=== PATIENT | female | born 1960 | race Caucasian/White ===

== ENCOUNTER → 2023-11-09 | Outpatient (CLI) | payer MEDICAID, SELFPAY ==
[2023-11-09 15:25] LABS: Amphetamine Urine VISTA NEGATIVE (<1000 ng/mL); Barbiturate Urine VISTA NEGATIVE (< 200 ng/mL); Benzodiazepine Urine VISTA POSITIVE (< 200 ng/mL); Cocaine Urine VISTA NEGATIVE (< 300 ng/mL); Ecstacy Urine VISTA NEGATIVE (< 500 ng/mL); Methadone Urine VISTA NEGATIVE (< 300 ng/mL); PCP Urine VISTA NEGATIVE (< 25 ng/mL); THC Urine VISTA NEGATIVE (< 50 ng/mL); Vista UDS pH Range 5
== END | disposition home or self-care (01) ==
LOC: LAB 14:35
PROVIDERS: PCP Nurse Practitioner Family; Referring Provider Anesthesiology Pain Medicine; Visit Provider Anesthesiology Pain Medicine
DX: F11.20 Opioid dependence, uncomplicated (principal)
CPT/HCPCS: 80307

== ENCOUNTER → 2023-11-16 | Outpatient (CLI) | payer MEDICAID, SELFPAY ==
[2023-11-16 13:39] LABS: Amphetamine Urine VISTA NEGATIVE (<1000 ng/mL); Barbiturate Urine VISTA NEGATIVE (< 200 ng/mL); Benzodiazepine Urine VISTA POSITIVE (< 200 ng/mL); Cocaine Urine VISTA NEGATIVE (< 300 ng/mL); Ecstacy Urine VISTA NEGATIVE (< 500 ng/mL); Methadone Urine VISTA NEGATIVE (< 300 ng/mL); PCP Urine VISTA NEGATIVE (< 25 ng/mL); THC Urine VISTA NEGATIVE (< 50 ng/mL); Vista UDS pH Range 6
== END | disposition home or self-care (01) ==
LOC: LAB 12:11
PROVIDERS: PCP Nurse Practitioner Family; Referring Provider Anesthesiology Pain Medicine; Visit Provider Anesthesiology Pain Medicine
DX: F11.20 Opioid dependence, uncomplicated (principal)
CPT/HCPCS: 80307

== ENCOUNTER 2023-12-09 10:25 | Inpatient (IN) | payer MEDICAID, SELFPAY ==
[2023-12-09 10:26] VITALS: BP 119/63; PULSE 95; RESP 18; TEMP 36.1; O2SAT 100; O2SAT 97; BMI 20.8
[2023-12-09 10:31] VITALS: BP 119/63; PULSE 95; RESP 16; TEMP 36.1; O2SAT 99
--- NOTE | 2023-12-09 10:42 | EX.ED.DYSGE1 ---
HPI History of Present Illness Chief Complaint: General Illness Informant: patient Narrative Narrative: Chief complaint, I cannot do nuthin. It takes a lot of questioning to get details out of the patient. She is very nonspecific. But it sounds like for 3 weeks she has not felt well. She has not had an appetite. But she is able to eat and drink. She states she is drinking fluids but then states she is very thirsty and wants to drink now. She has been coughing and brings up spit. She is short of breath on exertion but it sounds like that is not new if she has significant COPD. She is not on oxygen. She is still smoking. She states she just feels overall weak. She has not seen anyone about this. No change in medications. She also complains of her mouth being really sore and dry. Last steroids were months ago. No recent antibiotics. She denies any change in urine. No abdominal pain. No diarrhea. No known fever. She states she has COPD, chronic pain from several back surgeries. She has never had problems with her heart. She has had multiple breast surgeries for cysts but they have been benign. No abdominal surgeries. But then she states she had surgeries for scarring or something in her abdomen but she does not know what it was. PFSH PFSH Medical History Anxiety and depression Chronic back pain COPD (chronic obstructive pulmonary disease) GERD (gastroesophageal reflux disease) HLD (hyperlipidemia) RLS (restless legs syndrome) Tobacco use Home Medications acetaminophen 500 mg tablet 500 mg PO Q8H PRN pain 12/09/23 [History Last Taken 12/07/23] albuterol sulfate 90 mcg/actuation aerosol inhaler 2 puff inhalation Q6H PRN shortness of breath or wheezing 12/09/23 [History Last Taken 12/08/23] alprazolam 0.5 mg tablet 0.5 mg PO BID 12/09/23 [History Last Taken 12/09/23] cholecalciferol (vitamin D3) 1 cap PO DAILY 12/09/23 [History Last Taken 12/09/23] colestipol 1 gram tablet (Colestid) 1 g PO BID 12/09/23 [History Last Taken 12/09/23] escitalopram oxalate 20 mg tablet 20 mg PO DAILY 12/09/23 [History Last Taken 12/08/23] famotidine 40 mg tablet (Pepcid) 40 mg PO BID 12/09/23 [History Last Taken 12/08/23] gabapentin 600 mg tablet 600 mg PO TID 12/09/23 [History Last Taken 12/09/23] methocarbamol 750 mg tablet 750 mg PO TID 12/09/23 [History Last Taken 12/08/23] mirtazapine 15 mg tablet 15 mg PO QHS 12/09/23 [History Last Taken 12/08/23] ondansetron HCl 4 mg tablet 4 mg PO Q8H PRN nausea and vomiting 12/09/23 [History Last Taken Unknown] pantoprazole 40 mg tablet,delayed release (Protonix) 40 mg PO BID 12/09/23 [History Last Taken 12/09/23] ropinirole 1 mg tablet 1 mg PO QHS 12/09/23 [History Last Taken 12/08/23] rosuvastatin 5 mg tablet (Crestor) 5 mg PO DAILY 12/09/23 [History Last Taken 12/08/23] zaleplon 5 mg capsule 5 mg PO QHS PRN sleep 12/09/23 [History Last Taken 12/08/23] Allergy/AdvReac Type Severity Reaction Status Date / Time amoxicillin Allergy Mild Diarrhea Verified 12/09/23 10:37 dexlansoprazole Allergy Mild Diarrhea Verified 12/09/23 10:37 Influenza Virus Vaccines Allergy Mild Vomiting Verified 12/09/23 10:37 morphine Allergy Mild Vomiting Verified 12/09/23 10:38 sulfamethoxazole Allergy Mild Rash Verified 12/09/23 10:38 [From Bactrim] trimethoprim [From Bactrim] Allergy Mild Rash Verified 12/09/23 10:38 hydroxychloroquine Allergy Unknown NEEDS Verified 12/09/23 10:37 FOLLOW-UP metronidazole AdvReac Mild BLOATING Verified 12/09/23 10:37 Family History (Updated 12/09/23 @ 13:[address] Manjula Hopkins MD) Mother Diabetes Father Heart disease Hypertension CAD (coronary artery disease) Myocardial infarction Surgical History (Updated 12/09/23 @ 13:[address] Manjula Hopkins MD) H/O removal of cyst History of arthroscopy of right shoulder History of back surgery Hx of cholecystectomy S/P total abdominal hysterectomy Social History (Updated 12/09/23 @ 13:[address] Manjula Hopkins MD) household members: none Smoking Status: Current every day smoker tobacco type: cigarettes Smoking packs per day: 1 Smoking cigarettes per day: 20.0 alcohol intake: never substance use type: does not use ROS ROS ED Constitutional Constitutional ED: Denies chills, fever(s), sweats or weight loss Eyes Eyes: Denies change in vision ENT ENT ED: Reports sore throat; Denies ear pain or rhinorrhea Cardiovascular Cardiovascular: Denies chest pain or palpitations Respiratory/Chest Respiratory/Chest: Reports cough, dyspnea on exertion and sputum Gastrointestinal Gastrointestinal: Denies abdominal pain, diarrhea, nausea or vomiting Genitourinary Genitourinary ED: Denies dysuria or hematuria Musculoskeletal Musculoskeletal: Denies myalgias Integumentary Denies rash Neurologic Neurologic: Denies headache(s) Psychiatric Psychiatric: Reports anxiety Endocrine Endocrinology: Denies polydipsia or polyuria Hematologic/Lymphatic Hematologic/Lymphatic: Denies easy bleeding, easy bruising or lymphadenopathy Allergic/Immunologic Allergic/Immunologic ED: Denies urticaria EXAM Physical Exam Narrative Exam Narrative: CONSTITUTIONAL: Patient is nontoxic in appearance. The patient looks comfortable. Work of breathing looks normal. But she does look quite dry. HEENT: No notable trauma. Mucous membranes are quite dry. The back of her throat is a little bit irritated. I do not see defined ulcers. I do not see definitive thrush either. No sinus tenderness. No indication of pain with swallowing. EYES: No conjunctival injection. No proptosis. No pallor. NECK:No JVD. No stridor. CARDIOVASCULAR: Regular rate. Regular rhythm. No notable murmur. No JVD. RESPIRATORY: No respiratory distress. Breathing is unlabored. No wheezes. Her saturations are normal at 99% on room air. No pain with a deep breath. No tenderness. GASTROINTESTINAL: Not distended. Bowel sounds are normal. No tenderness. No guarding. No rebound. No palpable mass. No bruit is heard. She does appear to have signs of prior surgery. GENITOURINARY: No tenderness over the bladder. No CVA tenderness. MUSCULOSKELETAL: Atraumatic. No peripheral edema. No cord. No tenderness along the deep venous system. No asymmetry. NEUROLOGICAL: Patient is alert and appropriate. No focal deficit noted. SKIN: No noted rashes. No diaphoresis. PSYCHIATRIC: Patient is calm. Mood is appropriate. Const Vital Signs: 12/09/23 10:26 12/09/23 10:31 12/09/23 10:33 Temperature 97 F L 97 F L Temperature Source Temporal Temporal Pulse Rate 95 95 Respiratory Rate 18 16 Respiratory Effort Normal Non-Labored Respiratory Pattern Normal Blood Pressure 119/63 119/63 Blood Pressure Mean 81 81 Pulse Ox 97 99 Oxygen Delivery Method Room Air MDM MDM MDM Narrative Medical decision making narrative: My independent interpretation of her single view chest x-ray shows no acute process. I see no infiltrate. Final reading is pending. CBC shows significantly elevated white count at 23.6. She also has anemia at 9.3. She denies black or bloody stools. Platelets are also high at 670. I have no old labs for comparison. She does report getting treatments several times a week years ago to bring up my counts. She does not recognize CML AML or leukemia as a diagnosis. Patient's electrolytes show elevated BUN/creatinine. She also has very low potassium at 2.7 that was replaced. Sodium is a bit low. She is getting IV fluids. Although this creatinine is not markedly high, this patient has no history of kidney disease looks dry and is only 55 kg. My suspicion is her creatinine is normally less than half of that value so I do believe this represents an acute kidney injury in this patient. Liver function test show no marked abnormalities. Lactate is normal. Urinalysis did come back and even though she has no symptoms she does have findings consistent with a UTI and this is cultured. She is already treated with antibiotics. Lab Data Attestation: I reviewed the patient's lab results. Labs: Laboratory Results - last 24 hr 12/09/23 12/09/23 12/09/23 10:45 11:15 11:48 WBC 23.6 H RBC 2.79 L Hgb 9.3 L Hct 27.6 L MCV 98.9 MCH 33.3 H MCHC 33.7 RDW Std Deviation 53.2 H RDW Coeff of Francis 14.6 Plt Count 670 H MPV 9.4 Immature Gran % (Auto) 2.600 H Neut % (Auto) 86.9 H Lymph % (Auto) 4.7 L [place] % (Auto) 5.3 Eos % (Auto) 0.0 Baso % (Auto) 0.5 Absolute Neuts (auto) 20.5 H Absolute Lymphs (auto) 1.11 Nucleated RBC % 0 Sodium 129 L Potassium 2.7 L* Chloride 108 H Carbon Dioxide 11.0 L Anion Gap 10 BUN 34 H Creatinine 1.39 H Estim Creat Clear Calc 35.77 Est GFR (MDRD) Af Amer 49 L Est GFR (MDRD) Non-Af 41 L BUN/Creatinine Ratio 24.5 H Glucose 101 Lactic Acid 1.0 Calcium 9.1 Phosphorus 2.5 Magnesium 2.2 Total Bilirubin 0.30 AST 62 H ALT 29 Alkaline Phosphatase 117 Troponin I High Sens 8 Total Protein 6.9 Albumin 2.1 L Globulin 4.8 H Albumin/Globulin Ratio 0.4 L Urine Color Yellow Urine Clarity Clear Urine pH 5.0 Ur Specific [place] 1.015 Urine Protein 100 H Urine Glucose (UA) Normal Urine Ketones 15 H Urine Occult Blood 25 H Urine Nitrite Negative Urine Bilirubin Negative Urine Urobilinogen Normal Ur Leukocyte Esterase 500 H Urine RBC 0 SEEN Urine WBC >100 SEEN Ur Squamous Epith Cells 0 SEEN Urine Bacteria 1+ Urine Mucus 0 SEEN Radiography Diagnostic Testing: Clinical Impression(s) from Imaging Studies Chest X-Ray 12/09/23 11:00 IMPRESSION: Partial mild early infiltrate in the right upper and right middle lobes. Electronically Signed: Norbert Keys MD at 11:10 EST , EKG Initial EKG: Comments: My independent interpretation of the patient's EKG is a normal sinus rhythm with overall rate of 91. Mild baseline variation but no acute ST elevation or depression. No ectopy. NC interval, QRS duration and QTc are normal. Discharge Plan Triage Chief Complaint: General Illness ED Provider: Wilmar Diallo Dx/Rx/DC Orders Clinical Impression: TYRA (acute kidney injury), UTI (urinary tract infection), Pneumonia, Dehydration, Acute hypokalemia Primary Care Provider: Lydia Flores NP Disposition Disposition: [facility]
[2023-12-09] MEDS: 0.9% Normal Saline (1000mL) 1,000 ML 1000 ML IV (10:45)
--- NOTE | 2023-12-09 10:45 | ED.RN ---
NO OLD EKG
[2023-12-09 10:56] LABS: Absolute Lymphocyte Count 1.11 X10^3/uL (0.83-4.51); Absolute Neutrophil Count 20.5 X10^3/uL (2.0-7.7); Basophil# 0.11 X10^3/uL; Basophil% 0.5 % (0-1); Eosinophil# 0.01 X10^3/uL; Hematocrit 27.6 % (37-47); Hemoglobin 9.3 g/dL (12.0-15.0); Lymphocyte # 1.11 X10^3/ul (0.83-4.51); Lymphocyte % 4.7 % (19-41); Mean Corp Hgb Conc 33.7 g/dL (32-36); Mean Corpuscular Hgb 33.3 pg (27.0-32.0); Mean Corpuscular Volume 98.9 fL (81-99); Mean Platelet Vol. 9.4 fl (6.2-12.0); Monocyte# 1.26 X10^3/uL; Monocyte% 5.3 % (0-10); NRBC Flagged by Analyzer 0 % (0-5); Neutrophil # 20.54 X10^3/uL (2.7-7.7); Neutrophil % 86.9 % (47-70); POSITIVE DIFFERENTIAL YES; Platelet Count 670 K/mm3 (150-450); RBC Distribution Width CV 14.6 % (11.6-14.6); RBC Distribution Width SD 53.2 fl (35.1-43.9); Red Blood Count 2.79 M/mm3 (4.2-5.4); White Blood Count 23.6 K/mm3 (4.4-11.0)
[2023-12-09 10:58] LABS: Differential Indicated SCAN CRITERIA MET
--- NOTE | 2023-12-09 11:00 | RAD_ITS ---
STUDY: X-RAY CHEST REASON FOR EXAM: Female, 63 years old. Cough TECHNIQUE: Single AP portable view of the chest. COMPARISON: None. FINDINGS: EKG electrodes are seen. Findings suggestive of mild increased markings in the right middle lobe as well as in the right upper lobe adjacent to the fissure. There is no demonstrated pleural abnormality. Normal size heart. Normal mediastinum and claude. Normal visualized pulmonary arteries. Normal visualized aortic arch and descending thoracic aorta. There are degenerative changes of the visualized thoracic spine. Normal visualized ribs, clavicles, and shoulders. There is no demonstrated abnormality of the visualized soft tissue structures of the upper abdomen. RAD/Chest 1 View (Portable) IMPRESSION: Partial mild early infiltrate in the right upper and right middle lobes. Electronically Signed: Norbert Keys MD at 11:10 EST ,
[2023-12-09 11:16] LABS: ALB/GLOB Ratio 0.4 RATIO (0.9-2.4); AST(SGOT) 62 U/L (15-37); Alanine Aminotransfer ALT/SGPT 29 U/L (13-56); Albumin, Serum 2.1 g/dL (3.2-5.0); Alkaline Phosphatase 117 U/L (45-117); Anion Gap 10 (5-15); BUN 34 mg/dL (7-18); BUN/Creat Ratio 24.5 RATIO (10-20); Calcium,Total 9.1 mg/dL (8.5-10.1); Chloride 108 mmol/L (98-107); Creatinine, Serum 1.39 mg/dL (0.55-1.02); EST Glomerular Filtration Rate 41 mL/min (>60); Est Glom Filt Rate - Afr Amer 49 mL/min (>60); Estimated Creatinine Clearance 35.77 ml/min; Globulin 4.8 g/dL (2.2-4.2); Glucose 101 mg/dL (74-106); Potassium 2.7 mmol/L (3.5-5.1); Protein, Total 6.9 g/dL (6.4-8.2); Sodium Level 129 mmol/L (136-145); Troponin-I HS 8 pg/mL (3.0-54.0)
[2023-12-09 11:56] LABS: Mucous, Urine 0 SEEN /hpf (<or=2+); Red Blood Cells-Urine 0 SEEN /hpf (0-5); Squamous Epithelial Cells - UA 0 SEEN /hpf (5-10)
[2023-12-09] MEDS: Potassium Chloride Oral Tablet 20 MEQ 40 MEQ PO (11:58)
[2023-12-09] MEDS: Ceftriaxone 1 GM/50 ML BAG IV (11:58)
[2023-12-09 12:05] LABS: Color, Urine Yellow (Yellow); Glucose, Dipstick Normal (Normal); Ketone-Dipstick 15 mg/dl (Negative); Leukocyte Esterase-Dipstick 500 /ul (Negative); Nitrite-Dipstick Negative (Negative); Occult Blood-Urine 25 /ul (Negative); Protein-Dipstick 100 mg/dl (Negative); Specific Gravity, Urine 1.015 (1.002-1.030); Urine Bilirubin Dipstick Negative (Negative); Urine Clarity Clear (Clear); Urine Urobilinogen Normal (Normal)
[2023-12-09] MEDS: Azithromycin 500 MG in Dextrose 5%-Water (250mL Bag) 250 ML 250 MG IV (12:27)
[2023-12-09 12:42] LABS: Bacteria 1+ /hpf (None Seen); White Blood Cells >100 SEEN /hpf (0-5)
--- NOTE | 2023-12-09 12:49 | PCM.HP.STD ---
HPI - General General Date of Admission: 12/09/23 Date of Service: 12/09/23 Chief Complaint: Fatigue, malaise, cough. HPI Narrative The patient is a 63 y/o F w/ PMHx: COPD, Anxiety and Depression, RLS, HLD, GERD, Chronic back pain/neuropathy, Tobacco use who presents to the [facility] ED on 12/09/23 with history of 3 weeks of progressively worsening fatigue, malaise, decreased appetite with ongoing cough not markedly productive with just mucus coming up with dyspnea worse with exertion with difficulty even crossing the room prompting eventual ED evaluation. She denies any black or bloody stools or hemoptysis. She is not sure of her medication history and unsure of any history of chronic anemia or renal disease baseline status. Workup in the ED included T97, heart rate 95, BP 119/63, respiratory rate 16, 99% on room air, CBC with WBC 23.6, hemoglobin 9.3, MCV 98.9, platelets 670 with left shift, CMP with sodium 129, potassium 2.7, chloride 108, Comvax at 11, anion gap 10, BUN/creatinine 34/1.39, lactic acid 1.0, hepatic profile with AST 62 otherwise not marked appearing, troponin 8, urinalysis with specific remedy 1.015, protein 100, ketone 15, occult blood 25, leukocyte Estrace 500 with greater than 100 urine WBCs with 1+ urine bacteria, chest x-ray with partial mild early infiltrate right upper and right middle lobes, SARS COVID/influenza/RSV PCR negative, blood culture x 2 pending per ED. In the ED patient ministered potassium chloride 40 mill equivalent p.o. x 1, IV azithromycin and IV Rocephin therapy as well as 1 L normal saline bolus. [facility] Medical History Anxiety and depression Chronic back pain COPD (chronic obstructive pulmonary disease) GERD (gastroesophageal reflux disease) HLD (hyperlipidemia) RLS (restless legs syndrome) Tobacco use Home Medications acetaminophen 500 mg tablet 500 mg PO Q8H PRN pain 12/09/23 [History Last Taken 12/07/23] albuterol sulfate 90 mcg/actuation aerosol inhaler 2 puff inhalation Q6H PRN shortness of breath or wheezing 12/09/23 [History Last Taken 12/08/23] alprazolam 0.5 mg tablet 0.5 mg PO BID 12/09/23 [History Last Taken 12/09/23] cholecalciferol (vitamin D3) 1 cap PO DAILY 12/09/23 [History Last Taken 12/09/23] colestipol 1 gram tablet (Colestid) 1 g PO BID 12/09/23 [History Last Taken 12/09/23] escitalopram oxalate 20 mg tablet 20 mg PO DAILY 12/09/23 [History Last Taken 12/08/23] famotidine 40 mg tablet (Pepcid) 40 mg PO BID 12/09/23 [History Last Taken 12/08/23] gabapentin 600 mg tablet 600 mg PO TID 12/09/23 [History Last Taken 12/09/23] methocarbamol 750 mg tablet 750 mg PO TID 12/09/23 [History Last Taken 12/08/23] mirtazapine 15 mg tablet 15 mg PO QHS 12/09/23 [History Last Taken 12/08/23] ondansetron HCl 4 mg tablet 4 mg PO Q8H PRN nausea and vomiting 12/09/23 [History Last Taken Unknown] pantoprazole 40 mg tablet,delayed release (Protonix) 40 mg PO BID 12/09/23 [History Last Taken 12/09/23] ropinirole 1 mg tablet 1 mg PO QHS 12/09/23 [History Last Taken 12/08/23] rosuvastatin 5 mg tablet (Crestor) 5 mg PO DAILY 12/09/23 [History Last Taken 12/08/23] zaleplon 5 mg capsule 5 mg PO QHS PRN sleep 12/09/23 [History Last Taken 12/08/23] Allergy/AdvReac Type Severity Reaction Status Date / Time amoxicillin Allergy Mild Diarrhea Verified 12/09/23 10:37 dexlansoprazole Allergy Mild Diarrhea Verified 12/09/23 10:37 Influenza Virus Vaccines Allergy Mild Vomiting Verified 12/09/23 10:37 morphine Allergy Mild Vomiting Verified 12/09/23 10:38 sulfamethoxazole Allergy Mild Rash Verified 12/09/23 10:38 [From Bactrim] trimethoprim [From Bactrim] Allergy Mild Rash Verified 12/09/23 10:38 hydroxychloroquine Allergy Unknown NEEDS Verified 12/09/23 10:37 FOLLOW-UP metronidazole AdvReac Mild BLOATING Verified 12/09/23 10:37 Family History (Updated 12/09/23 @ 13:[address] Manjula Hopkins MD) Mother Diabetes Father Heart disease Hypertension CAD (coronary artery disease) Myocardial infarction Surgical History (Updated 12/09/23 @ 13:[address] Manjula Hopkins MD) H/O removal of cyst History of arthroscopy of right shoulder History of back surgery Hx of cholecystectomy S/P total abdominal hysterectomy Social History (Updated 12/09/23 @ 13:[address] Manjula Hopkins MD) household members: none Smoking Status: Current every day smoker tobacco type: cigarettes Smoking packs per day: 1 Smoking cigarettes per day: 20.0 alcohol intake: never substance use type: does not use ROS ROS Narrative Admission Review of Systems: CONSTITUTIONAL: No weight loss, fever, chills, + weakness or fatigue. HEENT: + sore throat with cough. Eyes: No visual loss, blurred vision, double vision or yellow sclerae. Ears, Nose, Throat: No hearing loss, sneezing, congestion, runny nose. SKIN: No rash or itching, lesions, wounds. CARDIOVASCULAR: No chest pain, chest pressure or chest discomfort, palpitations, edema, orthopnea, syncopal events. RESPIRATORY: + Shortness of breath, cough without marked sputum, occasional wheezing. No hemoptysis. GASTROINTESTINAL: + anorexia. No nausea, vomiting or diarrhea, abdominal pain, melena, BRBPR. GENITOURINARY: No dysuria, frequency, urgency or retention. NEUROLOGICAL: No headache, dizziness, syncope, paralysis, ataxia, numbness or tingling in the extremities, focal weakness, change in bowel or bladder control, seizure. MUSCULOSKELETAL: + muscle, back pain, joint pain or stiffness. HEMATOLOGIC: + anemia noted but patient unsure of history. No reported bleeding. Easy bruising. LYMPHATICS: No enlarged nodes. No history of splenectomy. PSYCHIATRIC: + history of depression and anxiety. ENDOCRINOLOGIC: No reports of sweating, cold or heat intolerance. No polyuria or polydipsia. ALLERGIES: No history of asthma, hives, eczema or rhinitis. Vital Signs Vital Signs Vital Signs: 12/09/23 10:26 12/09/23 10:31 12/09/23 10:33 Temperature 97 F L 97 F L Temperature Source Temporal Temporal Pulse Rate 95 95 Respiratory Rate 18 16 Respiratory Effort Normal Non-Labored Respiratory Pattern Normal Blood Pressure 119/63 119/63 Blood Pressure Mean 81 81 Pulse Ox 97 99 Oxygen Delivery Method Room Air Weight Weight: 121 lb 4.068 oz Body Mass Index (BMI) 20.8 Physical Exam Narrative Physical Examination: General: Awake, alert, oriented x 3 and cooperative, laying in ED bed, fatigued and ill-appearing. Skin: Normal color, normal turgor, no icterus, no cyanosis except for occasional staged ecchymoses. HEENT: AT/NC, EOMI, PERRLA, dry MM, poor oral dentition, no carotid bruits or JVD noted, mild OP erythema but no exudate. Lungs: Diminished, greater bases, right greater than left, mildly increased respiratory rate but no distress, no rales, ronchi or wheezing. Heart: Regular rate and rhythm; no gallop, rub audible. Abdomen: Soft, NTTP, ND, hyperactive BS, no appreciated HSM. Extremities: No cyanosis, clubbing, or edema. Neurological: Patient awake, alert, oriented as noted, cognitive function intact; pupils equally reactive to light and accommodation, cranial nerves grossly normal, moving all 4 extremities, no focal deficits, strength moderately to severely global decrease secondary to acute presentation. Psychiatric: Affect appears flat, ill-appearing, no acute evidence of depressive or anxiety feelings but does have underlying history. Results Lab / Micro Data 12/09/23 10:45 12/09/23 10:45 Labs: Laboratory Results - last 24 hr 12/09/23 10:45: WBC 23.6 H, RBC 2.79 L, Hgb 9.3 L, Hct 27.6 L, MCV 98.9, MCH 33.3 H, MCHC 33.7, RDW Std Deviation 53.2 H, RDW Coeff of Francis 14.6, Plt Count 670 H, MPV 9.4, Immature Gran % (Auto) 2.600 H, Neut % (Auto) 86.9 H, Lymph % (Auto) 4.7 L, [place] % (Auto) 5.3, Eos % (Auto) 0.0, Baso % (Auto) 0.5, Absolute Neuts (auto) 20.5 H, Absolute Lymphs (auto) 1.11, Nucleated RBC % 0, Sodium 129 L, Potassium 2.7 L*, Chloride 108 H, Carbon Dioxide 11.0 L, Anion Gap 10, BUN 34 H, Creatinine 1.39 H, Estim Creat Clear Calc 35.77, Est GFR (MDRD) Af Amer 49 L, Est GFR (MDRD) Non-Af 41 L, BUN/Creatinine Ratio 24.5 H, Glucose 101, Calcium 9.1, Total Bilirubin 0.30, AST 62 H, ALT 29, Alkaline Phosphatase 117, Troponin I High Sens 8, Total Protein 6.9, Albumin 2.1 L, Globulin 4.8 H, Albumin/Globulin Ratio 0.4 L 12/09/23 11:15: Lactic Acid 1.0 12/09/23 11:48: Urine Color Yellow, Urine Clarity Clear, Urine pH 5.0, Ur Specific [place] 1.015, Urine Protein 100 H, Urine Glucose (UA) Normal, Urine Ketones 15 H, Urine Occult Blood 25 H, Urine Nitrite Negative, Urine Bilirubin Negative, Urine Urobilinogen Normal, Ur Leukocyte Esterase 500 H, Urine RBC 0 SEEN, Urine WBC >100 SEEN, Ur Squamous Epith Cells 0 SEEN, Urine Bacteria 1+, Urine Mucus 0 SEEN Micro: Microbiology 12/09/23 10:48 Mucosa - Nose SARS-CoV-2, Influenza & RSV (PCR) - Final Imaging Radiology Impression Chest X-Ray 12/09/23 11:00 IMPRESSION: Partial mild early infiltrate in the right upper and right middle lobes. Electronically Signed: Norbert Keys MD at 11:10 EST Reading Location ID and State: [address] [place] [address] , Service support , Assessment & Plan Assessment/Plan (1) Pneumonia: PLAN: Plan The patient is a 63 y/o F w/ PMHx: COPD, Anxiety and Depression, RLS, HLD, GERD, Chronic back pain/neuropathy, Tobacco use who presents to the [facility] ED on 12/09/23 with history of 3 weeks of progressively worsening fatigue, malaise, decreased appetite with ongoing cough not markedly productive with just mucus coming up with dyspnea worse with exertion with difficulty even crossing the room prompting eventual ED evaluation. #1. Adult Failure to Thrive, Multifactorial, Acute RU and RM Lobe Pneumonia complicated by underlying COPD and Possible Acute Complicated UTI: CXR in the ED w/ right upper and right middle lobe infiltrates with CBC with WBC 23.6 with left shift. Will admit to [facility], maintain on oxygen with wean as tolerated to room air, continue ATC budesonide, PRN albuterol, maintained on IV Rocephin and Azithromycin, HOB, IS parameters w/ pending sputum cultures, full respiratory viral panel and urine antigens. Urine culture pending per ED. Bld cx x 2 obtained in the ED. PT/OT/CM consulted for discharge planning. #2. Hyponatremia, suspect acute component, likely hypovolemic: Admission sodium 129, chloride 108, will continue judicious hydration and repeat CMP in AM. #3. Hypokalemia: Admission K+ 2.7, magnesium level requested, supplementation given, repeat level this evening and also in AM. #4. Suspected Acute kidney injury although could certainly be chronic kidney disease or insufficiency on CKD but unable to determine given no comparison: Secondary to acute illness. Admission BUN/Cr 34/1.39, prior baseline creatinine unknown. Will hydrate, hold nephrotoxic medications and repeat chemistry in AM to further elucidate status. #5. Normocytic anemia, unclear chronicity: Admission hemoglobin 9.3, MCV 98.9, no comparison, suspect likely chronic, will continue to trend CBC to further elucidate. #6. Anxiety and depression: We will continue patient home low-dose alprazolam, escitalopram, clarifying but also appears to be on mirtazapine. #7. Chronic pain, neuropathy: We will continue patient home gabapentin regimen. Patient is also on chronic methocarbamol, will cautiously monitor function given unclear baseline and hold if worsening. #8. Restless leg syndrome: We will continue patient home Requip home regimen. #9. Hyperlipidemia: We will continue patient on statin therapy. #10. GERD: We will continue patient home PPI. #11. Tobacco Abuse: Encouraged cessation, inpatient consultation per RT, NR if desired. #12. DVT prophylaxis: Lovenox. #13. CODE status: Patient HCPOA and LW are not in place but her brother Jose would be her decision maker if needed. Discussed CODE status at length including difference between FULL code, DNR-CCA and DNR-CC status. Following discussions about the differences in these status, requested Full Code status. Advanced Care Planning Face to Face Time: 16 minutes. Charges/Coding Visit Charges Inpatient E&M: 53325 Init Hosp L3 Procedures Hospitalists Procedures: 88438 Advncd Care Plan 30 Min
[2023-12-09 13:53] LABS: Magnesium 2.2 mg/dL (1.6-2.6); Phosphorus 2.5 mg/dL (2.5-4.9)
[2023-12-09 14:35] VITALS: BMI 21.9
[2023-12-09 14:54] VITALS: BP 140/70; PULSE 102; RESP 18; TEMP 36.6; O2SAT 99
[2023-12-09 15:00] VITALS: RESP 18; O2SAT 95
[2023-12-09] MEDS: 0.9% Saline Lock 10 ML Syringe IV (15:28)
[2023-12-09] MEDS: guaiFENesin 10 ML UDC (200MG/10ML) 20 ML PO (15:28)
[2023-12-09] MEDS: Acetaminophen 325 MG Tablet 650 MG PO (15:28)
[2023-12-09] MEDS: Gabapentin 600 MG Tablet PO ×2 (15:28→20:40)
[2023-12-09] MEDS: 0.9% Normal Saline (1000mL) 1,000 ML 100 ML IV (15:34)
[2023-12-09 16:40] LABS: M R Staph aureus DNA By PCR POSITIVE (Negative); Probe Check PASS
[2023-12-09 17:56] LABS: Anion Gap 12 (5-15); BUN 27 mg/dL (7-18); BUN/Creat Ratio 24.1 RATIO (10-20); Calcium,Total 8.9 mg/dL (8.5-10.1); Chloride 109 mmol/L (98-107); Creatinine, Serum 1.12 mg/dL (0.55-1.02); EST Glomerular Filtration Rate 52 mL/min (>60); Est Glom Filt Rate - Afr Amer 63 mL/min (>60); Glucose 109 mg/dL (74-106); Sodium Level 132 mmol/L (136-145)
[2023-12-09 20:28] VITALS: BP 117/42; PULSE 95; RESP 18; TEMP 36.6; O2SAT 98
[2023-12-09 20:32] VITALS: PULSE 95; RESP 18; O2SAT 98
[2023-12-09] MEDS: Atorvastatin Calcium 10 MG Tablet PO (20:40)
[2023-12-09] MEDS: ALPRAZolam 0.5 MG Tablet PO (20:40)
[2023-12-09] MEDS: Mirtazapine 15 MG Tablet PO (20:41)
[2023-12-09] MEDS: Colestipol 1 GM TABLET PO (20:41)
[2023-12-09] MEDS: Pantoprazole Sodium 40 MG Tablet PO (20:41)
[2023-12-09] MEDS: Pramipexole Di-HCl 0.5 MG Tablet PO (20:43)
[2023-12-09] MEDS: MELATONIN 3 MG TABLET PO (20:44)
[2023-12-10] VITALS (10 sets, daily range): BP systolic 102–138; BP diastolic 53–65; PULSE 83–107; RESP 16–22; TEMP 36.5–37.2; O2SAT 97–100; BMI 21.9
[2023-12-10] MEDS: 0.9% Normal Saline (1000mL) 1,000 ML 100 ML IV (01:04)
[2023-12-10] MEDS: Gabapentin 600 MG Tablet PO ×3 (05:42→21:38)
[2023-12-10] MEDS: Acetaminophen 325 MG Tablet 650 MG PO (05:42)
--- NOTE | 2023-12-10 06:09 | PCM.PN.HOSP ---
Reason for Visit Reason for Visit: Diagnoses Pneumonia, unspecified organism (12/09/23) Subjective Subjective Patient overnight with loose stools otherwise reports feeling improved with decreased dyspnea and less and cough. Reviewed current plan of care which included continued antibiotic therapy to cover for pneumonia as well as possible UTI with urine culture pending. Noted that her respiratory panel was negative. Discussed with her potassium is still low with plan for additional supplementation and she requested specifically that it be pills in the the liquid. Patient denies fevers, chills, nausea, emesis, abdominal pain, chest pain or dyspnea. Objective Data Objective Data Vital Signs: Vital Signs Temp Pulse Resp BP Pulse Ox O2 Del Method 99 F 95 18 127/65 H 100 Room Air 12/10/23 02:41 12/10/23 02:41 12/10/23 02:41 12/10/23 02:41 12/10/23 02:41 12/10/23 02:41 Oxygen Delivery Method Room Air Weight: 127 lb 13.89 oz Body Mass Index (BMI) 21.9 Intake & Output: Intake and Output for Last 24 Hours 12/08/23 12/09/23 12/10/23 23:59 23:59 23:59 Intake Total 1605 / 1605 950 / 950 Balance 1605 / 1605 950 / 950 Lab / Micro Data 12/10/23 06:44 12/10/23 06:44 Labs: Laboratory Results - last 24 hr 12/09/23 10:45: WBC 23.6 H, RBC 2.79 L, Hgb 9.3 L, Hct 27.6 L, MCV 98.9, MCH 33.3 H, MCHC 33.7, RDW Std Deviation 53.2 H, RDW Coeff of Francis 14.6, Plt Count 670 H, MPV 9.4, Immature Gran % (Auto) 2.600 H, Neut % (Auto) 86.9 H, Lymph % (Auto) 4.7 L, [place] % (Auto) 5.3, Eos % (Auto) 0.0, Baso % (Auto) 0.5, Absolute Neuts (auto) 20.5 H, Absolute Lymphs (auto) 1.11, Nucleated RBC % 0, Sodium 129 L, Potassium 2.7 L*, Chloride 108 H, Carbon Dioxide 11.0 L, Anion Gap 10, BUN 34 H, Creatinine 1.39 H, Estim Creat Clear Calc 35.77, Est GFR (MDRD) Af Amer 49 L, Est GFR (MDRD) Non-Af 41 L, BUN/Creatinine Ratio 24.5 H, Glucose 101, Calcium 9.1, Phosphorus 2.5, Magnesium 2.2, Total Bilirubin 0.30, AST 62 H, ALT 29, Alkaline Phosphatase 117, Troponin I High Sens 8, Total Protein 6.9, Albumin 2.1 L, Globulin 4.8 H, Albumin/Globulin Ratio 0.4 L 12/09/23 11:15: Lactic Acid 1.0 12/09/23 11:48: Urine Color Yellow, Urine Clarity Clear, Urine pH 5.0, Ur Specific Morrison 1.015, Urine Protein 100 H, Urine Glucose (UA) Normal, Urine Ketones 15 H, Urine Occult Blood 25 H, Urine Nitrite Negative, Urine Bilirubin Negative, Urine Urobilinogen Normal, Ur Leukocyte Esterase 500 H, Urine RBC 0 SEEN, Urine WBC >100 SEEN, Ur Squamous Epith Cells 0 SEEN, Urine Bacteria 1+, Urine Mucus 0 SEEN 12/09/23 15:10: MRSA (PCR) POSITIVE H 12/09/23 17:30: Sodium 132 L, Potassium 3.0 L, Chloride 109 H, Carbon Dioxide 11.0 L, Anion Gap 12, BUN 27 H, Creatinine 1.12 H, Estim Creat Clear Calc 44.40, Est GFR (MDRD) Af Amer 63, Est GFR (MDRD) Non-Af 52 L, BUN/Creatinine Ratio 24.1 H, Glucose 109 H, Calcium 8.9 Micro: Microbiology 12/09/23 15:13 Mucosa - Nose Respiratory Panel (PCR) - Final 12/09/23 10:48 Mucosa - Nose SARS-CoV-2, Influenza & RSV (PCR) - Final Radiography Diagnostic Testing: Radiology Impression Chest X-Ray 12/09/23 11:00 IMPRESSION: Partial mild early infiltrate in the right upper and right middle lobes. Electronically Signed: Norbert Keys MD at 11:10 EST , Physical Exam Narrative Physical Examination: General: Awake, alert, oriented x 3 and cooperative, laying in ED bed, improved appearance since the day prior, still fatigued but less so. Skin: Normal color, normal turgor, no icterus, no cyanosis except for occasional staged ecchymoses. HEENT: AT/NC, EOMI, PERRLA, poor oral dentition, improved but still mildly MM. Lungs: Improved air movement, still diminished, greater bases, right greater than left, normalized respiratory rate, no rales, rhonchi or wheezing. Heart: Regular rate and rhythm; no gallop, rub audible. Abdomen: Soft, NTTP, ND, normalized BS. Extremities: No cyanosis, clubbing, or edema. Neurological: Patient awake, alert, oriented as noted, cognitive function intact; pupils equally reactive to light and accommodation, cranial nerves grossly normal, moving all 4 extremities, no focal deficits, strength improved, moderately to severely globally decreased. Psychiatric: Affect appears more interactive, less fatigued, no acute evidence of depressive or anxiety feelings but does have underlying history. Assessment & Plan Assessment/Plan (1) Pneumonia: PLAN: Plan The patient is a 63 y/o F w/ PMHx: COPD, Anxiety and Depression, RLS, HLD, GERD, Chronic back pain/neuropathy, Tobacco use who presents to the [facility] ED on 12/09/23 with history of 3 weeks of progressively worsening fatigue, malaise, decreased appetite with ongoing cough not markedly productive with just mucus coming up with dyspnea worse with exertion with difficulty even crossing the room prompting eventual ED evaluation. #1. Adult Failure to Thrive, Multifactorial, Acute RU and RM Lobe Pneumonia complicated by underlying COPD and Possible Acute Complicated UTI: CXR in the ED w/ right upper and right middle lobe infiltrates with CBC with WBC 23.6 with left shift. Admitted to [place], maintained on oxygen with wean as tolerated to room air, continue ATC budesonide, PRN albuterol, maintained on IV Rocephin and Azithromycin, HOB, IS parameters w/requested sputum cultures, full respiratory viral panel negative, pending urine antigens. Urine culture pending per ED. patient with onset of diarrhea through the evening however suspect this is likely related to recent initiation of antibiotic therapy however to be cautious enteric and C. difficile are also pending. Bld cx x 2 obtained in the ED. PT/OT/CM consulted for discharge planning. #2. Hyponatremia, suspect acute component, likely hypovolemic: Admission sodium 129, chloride 108, judiciously hydrated, 12/10/23 Na 137, will repeat CMP in AM. #3. Hypokalemia: Admission K+ 2.7, magnesium 2.2, supplementation given, repeat level evening 12/09/23 3.0 and 12/10/23 AM K 2.5, will given additional oral and IV supplementation and again repeat level later today and also in AM. #4. Acute kidney injury, initially was uncertain as could have been chronic kidney disease or insufficiency on CKD but was initially unable to determine given no comparison: Suspect TYRA secondary to acute illness. Admission BUN/Cr 34/1.39, prior baseline creatinine had been unknown. Hydrated, held nephrotoxic medications. 12/10/23 BUN/Cr 18/0.95, thus given > .3 change would be consistent with TYRA. Continue to trend CMP. #5. Normocytic anemia, unclear chronicity: Admission hemoglobin 9.3, MCV 98.9, no comparison, suspect likely chronic,but unclear, hydrated overnight thus suspect repeat would be lower, 12/10/23 Hgb 7.9, MCV 97, Fe panel, ferritin, B12, folic acid requested, continue to trend CBC to further elucidate. If Hgb drops further will obtain guiac and hold lovenox as upon presentation unclear baseline and dehydrated thus this could be her baseline. #6. Anxiety and depression: We will continue patient home low-dose alprazolam, escitalopram, clarifying but also appears to be on mirtazapine. #7. Chronic pain, neuropathy: We will continue patient home gabapentin regimen. Patient is also on chronic methocarbamol, will cautiously monitor function given unclear baseline and hold if worsening. #8. Restless leg syndrome: We will continue patient home Requip home regimen. #9. Hyperlipidemia: We will continue patient on statin therapy. #10. GERD: We will continue patient home PPI. #11. Tobacco Abuse: Encouraged cessation, inpatient consultation per RT, NR if desired. #12. DVT prophylaxis: Lovenox. #13. CODE status: Patient HCPOA and LW are not in place but her brother Jose would be her decision maker if needed. Full Code status. Charges/Coding Visit Charges Inpatient E&M: 75745 Subs Hosp L2
[2023-12-10] MEDS: Budesonide Respules 0.5 MG/2 ML AMPUL.NEB. INHALATION ×2 (07:13→19:21)
[2023-12-10 07:32] LABS: Absolute Lymphocyte Count 0.99 X10^3/uL (0.83-4.51); Absolute Neutrophil Count 11.6 X10^3/uL (2.0-7.7); Basophil# 0.03 X10^3/uL; Basophil% 0.2 % (0-1); Eosinophil# 0.02 X10^3/uL; Eosinophils% 0.1 % (0-5); Hemoglobin 7.9 g/dL (12.0-15.0); Lymphocyte # 0.99 X10^3/ul (0.83-4.51); Lymphocyte % 7.2 % (19-41); Mean Corp Hgb Conc 34.3 g/dL (32-36); Mean Corpuscular Hgb 33.3 pg (27.0-32.0); Mean Platelet Vol. 9.2 fl (6.2-12.0); Monocyte# 0.87 X10^3/uL; Monocyte% 6.3 % (0-10); NRBC Flagged by Analyzer 0 % (0-5); Neutrophil # 11.61 X10^3/uL (2.7-7.7); Neutrophil % 83.9 % (47-70); Platelet Count 594 K/mm3 (150-450); RBC Distribution Width CV 14.2 % (11.6-14.6); RBC Distribution Width SD 50.4 fl (35.1-43.9); Red Blood Count 2.37 M/mm3 (4.2-5.4); White Blood Count 13.8 K/mm3 (4.4-11.0)
[2023-12-10 08:20] LABS: ALB/GLOB Ratio 0.4 RATIO (0.9-2.4); AST(SGOT) 169 U/L (15-37); Alanine Aminotransfer ALT/SGPT 73 U/L (13-56); Albumin, Serum 1.7 g/dL (3.2-5.0); Alkaline Phosphatase 116 U/L (45-117); Anion Gap 8 (5-15); BUN 18 mg/dL (7-18); BUN/Creat Ratio 18.9 RATIO (10-20); Calcium,Total 8.5 mg/dL (8.5-10.1); Chloride 116 mmol/L (98-107); Creatinine, Serum 0.95 mg/dL (0.55-1.02); EST Glomerular Filtration Rate 63 mL/min (>60); Est Glom Filt Rate - Afr Amer 76 mL/min (>60); Estimated Creatinine Clearance 52.34 ml/min; Globulin 4.1 g/dL (2.2-4.2); Glucose 124 mg/dL (74-106); Potassium 2.5 mmol/L (3.5-5.1); Protein, Total 5.8 g/dL (6.4-8.2); Sodium Level 137 mmol/L (136-145)
[2023-12-10] MEDS: Potassium Chloride Oral Soln 20 MEQ/15 ML UDC 40 MEQ PO (08:55)
[2023-12-10] MEDS: Colestipol 1 GM TABLET PO ×2 (09:01→21:38)
[2023-12-10] MEDS: Famotidine 20 MG Tablet 40 MG PO (09:01)
[2023-12-10] MEDS: Pantoprazole Sodium 40 MG Tablet PO ×2 (09:01→21:38)
[2023-12-10] MEDS: Enoxaparin 30 MG/0.3 ML Syringe SC (09:01)
[2023-12-10] MEDS: Escitalopram Oxalate 20 MG Tablet PO (09:01)
[2023-12-10] MEDS: Ceftriaxone 1 GM/50 ML BAG IV (09:02)
[2023-12-10] MEDS: ALPRAZolam 0.5 MG Tablet PO ×2 (09:08→21:37)
[2023-12-10 09:33] LABS: Ferritin 544 ng/mL (8-252); Iron 26 ug/dL (50-170); Iron Binding Capacity,Total 134 ug/dL (250-450); PERCENT IRON SATURATION 19.4 % (15.0-55.0)
[2023-12-10] MEDS: KCL 40mEq in 0.9% NS 40 MEQ/1,000 ML IV.SOLN 125 MEQ IV (11:21)
[2023-12-10] MEDS: Potassium Chloride Oral Tablet 20 MEQ 60 MEQ PO (11:21)
[2023-12-10] MEDS: Azithromycin 500 MG in Dextrose 5%-Water (250mL Bag) 250 ML 250 MG IV (11:21)
--- NOTE | 2023-12-10 14:05 | CASEMGMT ---
RN CM Face to Face with patient for initial transition planning/care coordination assessment. RN CM introduced self and role at [facility]. Patient lying in bed, alert and oriented. Patient willing to participate in assessment and is able to answer all questions appropriately. Care providers, pharmacy, and demographics verified. Patient wishes to discharge home, denies need for home health at this time, will monitor progress with therapy. Patient states she has no further needs or concerns at this time. CM to follow for discharge planning needs that may arise. 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 Patient is independent at home. Transportation: self, insurance, brother DME/HHC: Patient has shower chair, grab bars, rollator at home. No previous HHC or SNF. Patient smokes 1PPD of cigarettes. Disposition Plan: TBD, anticipate HHC vs SNF pending progress with therapy Mary Kate LONG, RN, CM
[2023-12-10 15:53] LABS: Anion Gap 11 (5-15); BUN 15 mg/dL (7-18); BUN/Creat Ratio 20.1 RATIO (10-20); Calcium,Total 8.6 mg/dL (8.5-10.1); Chloride 113 mmol/L (98-107); Creatinine, Serum 0.74 mg/dL (0.55-1.02); EST Glomerular Filtration Rate 83 mL/min (>60); Est Glom Filt Rate - Afr Amer 101 mL/min (>60); Estimated Creatinine Clearance 67.19 ml/min; Glucose 100 mg/dL (74-106); Potassium 3.2 mmol/L (3.5-5.1); Sodium Level 139 mmol/L (136-145)
[2023-12-10 15:59] LABS: Vitamin B12 397 pg/mL (211-911)
[2023-12-10] MEDS: Ensure Plus High Protein 120 ML LIQUID PO ×2 (16:04→21:40)
[2023-12-10] MEDS: Pramipexole Di-HCl 0.5 MG Tablet PO (21:38)
[2023-12-10] MEDS: Atorvastatin Calcium 10 MG Tablet PO (21:38)
[2023-12-10] MEDS: Mirtazapine 15 MG Tablet PO (21:39)
[2023-12-10] MEDS: 0.9% Saline Lock 10 ML Syringe IV (21:39)
[2023-12-11] VITALS (10 sets, daily range): BP systolic 109–125; BP diastolic 46–63; PULSE 86–94; RESP 16–22; TEMP 36.3–37.1; O2SAT 95–99; BMI 21.9
[2023-12-11] MEDS: Gabapentin 600 MG Tablet PO ×3 (05:03→20:04)
--- NOTE | 2023-12-11 06:15 | PN.HOSP_ITS ---
Reason for Visit Reason for Visit: Diagnoses Pneumonia, unspecified organism (12/09/23) Subjective Subjective Patient notes feeling improved but significantly weak and very tired stating she did not sleep well overnight. Continues to work with therapies and discussed frankly that the level of her weakness may mean she needs to transition to ski lled therapy at a facility for some time until appropriate for return to home. Patient notes still occasional coughing but less since. Patient denies fevers, chills, nausea, emesis, abdominal pain, chest pain or worsening dyspnea. Objective Data Objective Data Vital Signs: Vital Signs Temp Pulse Resp BP Pulse Ox O2 Del Method 97.4 F L 88 22 H 122/63 H 98 Room Air 12/11/23 04:56 12/11/23 04:56 12/11/23 04:56 12/11/23 04:56 12/11/23 04:56 12/11/23 05:01 Oxygen Delivery Method Room Air Weight: 128 lb 4.944 oz Body Mass Index (BMI) 21.9 Intake & Output: Intake and Output for Last 24 Hours 12/09/23 12/10/23 12/11/23 23:59 23:59 23:59 Intake Total 1605 / 1605 3211.25 / 3711.25 500 / 500 Output Total 200 / 200 Balance 1605 / 1605 3211.25 / 3511.25 300 / 300 Lab / Micro Data 12/11/23 06:35 12/11/23 06:35 Labs: Laboratory Results - last 24 hr 12/10/23 06:44: WBC 13.8 H, RBC 2.37 L, Hgb 7.9 L, Hct 23.0 L, MCV 97.0, MCH 33.3 H, MCHC 34.3, RDW Std Deviation 50.4 H, RDW Coeff of Francis 14.2, Plt Count 594 H, MPV 9.2, Immature Gran % (Auto) 2.300 H, Neut % (Auto) 83.9 H, Lymph % (Auto) 7.2 L, [place] % (Auto) 6.3, Eos % (Auto) 0.1, Baso % (Auto) 0.2, Absolute Neuts (auto) 11.6 H, Absolute Lymphs (auto) 0.99, Nucleated RBC % 0, Sodium 137, Potassium 2.5 L*, Chloride 116 H, Carbon Dioxide 13.0 L, Anion Gap 8, BUN 18, Creatinine 0.95, Estim Creat Clear Calc 52.34, Est GFR (MDRD) Af Amer 76, Est GFR (MDRD) Non-Af 63, BUN/Creatinine Ratio 18.9, Glucose 124 H, Calcium 8.5, Iron 26 L, TIBC 134 L, Iron Saturation 19.4, Ferritin 544 H, Total Bilirubin 0.20, AST 169 H, ALT 73 H, Alkaline Phosphatase 116, Total Protein 5.8 L, Albumin 1.7 L, Globulin 4.1, Albumin/Globulin Ratio 0.4 L, Folate 13.10 12/10/23 13:56: Sodium 139, Potassium 3.2 L, Chloride 113 H, Carbon Dioxide 15.0 L, Anion Gap 11, BUN 15, Creatinine 0.74, Estim Creat Clear Calc 67.19, Est GFR (MDRD) Af Amer 101, Est GFR (MDRD) Non-Af 83, BUN/Creatinine Ratio 20.1 H, Glucose 100, Calcium 8.6, Vitamin B12 397 Micro: Microbiology 12/11/23 03:00 Urine, Clean Catch Streptococcus pneumoniae Antigen (M - Final 12/11/23 03:00 Urine, Clean Catch Legionella Antigen - Final 12/09/23 11:09 Urine, Clean Catch Urine Culture - Preliminary Presumptive E. coli 12/09/23 15:13 Mucosa - Nose Respiratory Panel (PCR) - Final 12/09/23 10:48 Mucosa - Nose SARS-CoV-2, Influenza & RSV (PCR) - Final Physical Exam Narrative Physical Examination: General: Awake, alert, oriented x 3 and cooperative, seated upright in the MS bed, fatigued, notes she did not sleep well overnight. Skin: Normal color, normal turgor, no icterus, no cyanosis except for occasional staged ecchymoses. HEENT: AT/NC, EOMI, PERRLA, poor oral dentition, MMM. Lungs: Improved effort, still diminished, greater bases, right greater than left, no rales, rhonchi or wheezing. Heart: Regular rate and rhythm; no gallop, rub audible. Abdomen: Soft, NTTP, ND, normalized BS. Extremities: No cyanosis, clubbing, or edema. Neurological: Patient awake, alert, oriented as noted, cognitive function intact; pupils equally reactive to light and accommodation, cranial nerves grossly normal, moving all 4 extremities, no focal deficits, strength improving but still remains moderately to severely globally decreased. Psychiatric: Affect appears very fatigued today, no acute evidence of depressive or anxiety feelings but does have underlying history. Assessment & Plan Assessment/Plan (1) Pneumonia: PLAN: Plan The patient is a 63 y/o F w/ PMHx: COPD, Anxiety and Depression, RLS, HLD, GERD, Chronic back pain/neuropathy, Tobacco use who presents to the [facility] ED on 12/09/23 with history of 3 weeks of progressively worsening fatigue, malaise, decreased appetite with ongoing cough not markedly productive with just mucus coming up with dyspnea worse with exertion with difficulty even crossing the room prompting eventual ED evaluation. #1. Adult Failure to Thrive, Multifactorial, Acute RU and RM Lobe Pneumonia complicated by underlying COPD and Acute E. Coli Complicated UTI: CXR in the ED w/ right upper and right middle lobe infiltrates with CBC with WBC 23.6 with left shift. Admitted to [place], maintained on oxygen with wean as tolerated to room air, continue ATC budesonide, PRN albuterol, maintained on IV Rocephin and Azithromycin, HOB, IS parameters, full respiratory viral panel negative, urine antigens negative. Urine culture w/ E. Coli >100,000 CFU with sensitivity to rocephin. 12/10/23 Patient with onset of diarrhea through the evening prior suspected likely related to recent initiation of antibiotic therapy; however, to be cautious enteric and C. difficile obtained and negative with loperamide started 12/11/23 as needed. Bld cx x 2 obtained in the ED with NGTD. PT/OT/CM consulted for discharge planning. Given debility and weakness, likely will need SNF. Given UCx E. Coli sensitivities upon discharge would transition to oral cephalosporin/completion of azithromycin. #2. Hyponatremia, suspect acute component, likely hypovolemic: Admission sodium 129, chloride 108, judiciously hydrated, 12/10/23 Na 137->12/11/23 Na 137, continue to trend. #3. Hypokalemia: Admission K+ 2.7, magnesium 2.2, supplementation given, repeat level evening 12/09/23 3.0 and 12/10/23 AM K 2.5, given additional oral and IV supplementation, 12/11/23 K+ 3.0, additional supplementation given, continue to trend. #4. Acute kidney injury, initially was uncertain as could have been chronic k idney disease or insufficiency on CKD but was initially unable to determine given no comparison: Suspect TYRA secondary to acute illness. Admission BUN/Cr 34/1.39, prior baseline creatinine had been unknown. Hydrated, held nephrotoxic medications. 12/10/23 BUN/Cr 18/0.95, thus given > .3 change would be consistent with TYRA. 12/11/23 BUN/Cr 8/0.68. #5. Normocytic anemia, unclear chronicity, appears consistent with AOCD: Admission hemoglobin 9.3, MCV 98.9, no comparison, suspect likely chronic,but un clear, hydrated thus suspected repeat would be lower, 12/10/23 Hgb 7.9, MCV 97. Vitamin B12 397, iron 26, TIBC 134, iron saturation 19.4, ferritin 544, folate acid 13.10, more consistent with AOCD but folic acid/vitamin B12 certainly on lower end. Guiac negative. 12/11/24 Hgb 7.8, MCV 96.2. #6. Anxiety and depression: We will continue patient home low-dose alprazolam, escitalopram, clarifying but also appears to be on mirtazapine. #7. Chronic pain, neuropathy: We will continue patient home gabapentin regimen. Patient is also on chronic methocarbamol, will cautiously monitor function given unclear baseline and hold if worsening. #8. Restless leg syndrome: We will continue patient home Requip home regimen. #9. Hyperlipidemia: We will continue patient on statin therapy. #10. GERD: We will continue patient home PPI. #11. Tobacco Abuse: Encouraged cessation, inpatient consultation per RT, NR if desired. #12. DVT prophylaxis: Lovenox. #13. CODE status: Patient HCPOA and LW are not in place but her brother Jose would be her decision maker if needed. Full Code status. Charges/Coding Visit Charges Inpatient E&M: 81643 Subs Hosp L2
[2023-12-11 06:46] LABS: Absolute Lymphocyte Count 1.59 X10^3/uL (0.83-4.51); Absolute Neutrophil Count 9.7 X10^3/uL (2.0-7.7); Basophil# 0.06 X10^3/uL; Basophil% 0.5 % (0-1); Eosinophil# 0.06 X10^3/uL; Eosinophils% 0.5 % (0-5); Hematocrit 22.5 % (37-47); Hemoglobin 7.8 g/dL (12.0-15.0); Lymphocyte # 1.59 X10^3/ul (0.83-4.51); Lymphocyte % 12.5 % (19-41); Mean Corp Hgb Conc 34.7 g/dL (32-36); Mean Corpuscular Hgb 33.3 pg (27.0-32.0); Mean Corpuscular Volume 96.2 fL (81-99); Monocyte# 1.05 X10^3/uL; Monocyte% 8.2 % (0-10); NRBC Flagged by Analyzer 0 % (0-5); Neutrophil # 9.65 X10^3/uL (2.7-7.7); Neutrophil % 75.5 % (47-70); Platelet Count 594 K/mm3 (150-450); RBC Distribution Width SD 49.3 fl (35.1-43.9); Red Blood Count 2.34 M/mm3 (4.2-5.4); White Blood Count 12.8 K/mm3 (4.4-11.0)
[2023-12-11 07:15] LABS: ALB/GLOB Ratio 0.4 RATIO (0.9-2.4); AST(SGOT) 103 U/L (15-37); Alanine Aminotransfer ALT/SGPT 71 U/L (13-56); Albumin, Serum 1.8 g/dL (3.2-5.0); Alkaline Phosphatase 168 U/L (45-117); Anion Gap 9 (5-15); BUN 8 mg/dL (7-18); BUN/Creat Ratio 11.7 RATIO (10-20); Calcium,Total 8.6 mg/dL (8.5-10.1); Chloride 112 mmol/L (98-107); Creatinine, Serum 0.68 mg/dL (0.55-1.02); EST Glomerular Filtration Rate 92 mL/min (>60); Est Glom Filt Rate - Afr Amer 111 mL/min (>60); Estimated Creatinine Clearance 73.12 ml/min; Globulin 4.3 g/dL (2.2-4.2); Glucose 112 mg/dL (74-106); Protein, Total 6.1 g/dL (6.4-8.2); Sodium Level 137 mmol/L (136-145)
[2023-12-11] MEDS: 0.9% Saline Lock 10 ML Syringe IV ×2 (09:56→20:03)
[2023-12-11] MEDS: Colestipol 1 GM TABLET PO ×2 (09:57→20:05)
[2023-12-11] MEDS: Famotidine 20 MG Tablet 40 MG PO (09:57)
[2023-12-11] MEDS: Escitalopram Oxalate 20 MG Tablet PO (09:57)
[2023-12-11] MEDS: ALPRAZolam 0.5 MG Tablet PO ×2 (09:57→20:04)
[2023-12-11] MEDS: Enoxaparin 40 MG/0.4 ML Syringe SC (09:57)
[2023-12-11] MEDS: Azithromycin 500 MG in Dextrose 5%-Water (250mL Bag) 250 ML 250 MG IV (09:57)
[2023-12-11] MEDS: Pantoprazole Sodium 40 MG Tablet PO ×2 (09:57→20:05)
[2023-12-11] MEDS: Ceftriaxone 1 GM/50 ML BAG IV (11:39)
[2023-12-11] MEDS: Acetaminophen 325 MG Tablet 650 MG PO (14:20)
--- NOTE | 2023-12-11 14:44 | CASEMGMT ---
VANESSA VASQUEZ in to discuss progress with therapy with patient, patient walked 12feet contact guard. Patient agreeable to SNF at discharge. SNF list provided and reviewed with patient. Patient agreeable for SNF for additional rehab and would like [facility]. Patient had no further questions or concerns. VANESSA VASQUEZ updated SW regarding preferences.
--- NOTE | 2023-12-11 15:00 | CASEMGMT ---
Social Work Per RNCM, pt is now requesting placement at SNF. A list of SNF providers including quality and resource use data and consistent with the patient?s preferred geographic region, medical needs, and insurance network were provided from the [employer] Guide. RNCM reports pt choosing [facility]. DC biology research assistant updated and referral sent. Plan: [facility], pending acceptance and precert JIMMIE Kat
--- NOTE | 2023-12-11 15:11 | CASEMGMT ---
Addendum entered by Alyssa Perez 12/14/23 11:15: [facility] has declined referral. SW updated. Alyssa Perez, Discharge Planning Asst. Original Note: Discharge Planning Referral sent via [facility] to [facility]. Alyssa Perez, Discharge Planning Asst.
[2023-12-11] MEDS: Potassium Chloride Oral Tablet 20 MEQ 40 MEQ PO (15:28)
[2023-12-11] MEDS: Mirtazapine 15 MG Tablet PO (20:05)
[2023-12-11] MEDS: Atorvastatin Calcium 10 MG Tablet PO (20:05)
[2023-12-11] MEDS: Pramipexole Di-HCl 0.5 MG Tablet PO (20:05)
[2023-12-11] MEDS: Budesonide Respules 0.5 MG/2 ML AMPUL.NEB. INHALATION (20:19)
[2023-12-12] VITALS (10 sets, daily range): BP systolic 100–123; BP diastolic 56–62; PULSE 82–99; RESP 16–22; TEMP 36.9–37.4; O2SAT 96–99; BMI 21.9
[2023-12-12] MEDS: Gabapentin 600 MG Tablet PO ×3 (05:30→20:52)
--- NOTE | 2023-12-12 06:23 | PCM.PN.HOSP ---
Reason for Visit Reason for Visit: Diagnoses Pneumonia, unspecified organism (12/09/23) Subjective Subjective Patient per discussion with staff overnight up with walker with one-person assist and recommendations for physical therapy for ongoing assessments as well as Occupational Therapy noting significant rest needed between activities and the patient is still unsteady and needs several cues to perform her own ADLs. Patient reports being fatigued and tired but feeling improved since initial ED arrival with less coughing and no dyspnea. She remains amenable to care home facility placement with prior authorization ongoing with possibility of Thursday or Thursday. Patient denies fevers, chills, nausea, emesis, abdominal pain, chest pain or dyspnea. Objective Data Objective Data Vital Signs: Vital Signs Temp Pulse Resp BP Pulse Ox O2 Del Method 99.3 F H 89 22 H 121/62 H 97 Room Air 12/12/23 05:29 12/12/23 05:29 12/12/23 05:29 12/12/23 05:29 12/12/23 05:12/12/23 05:29 Oxygen Delivery Method Room Air Weight: 128 lb 4.944 oz Body Mass Index (BMI) 21.9 Intake & Output: Intake and Output for Last 24 Hours 12/10/23 12/11/23 12/12/23 23:59 23:59 23:59 Intake Total 3211.25 / 3711.25 805 / 805 Output Total 200 / 200 Balance 3211.25 / 3511.25 605 / 605 Lab / Micro Data 12/12/23 06:10 12/12/23 06:10 Labs: Laboratory Results - last 24 hr 12/11/23 06:35: WBC 12.8 H, RBC 2.34 L, Hgb 7.8 L, Hct 22.5 L, MCV 96.2, MCH 33.3 H, MCHC 34.7, RDW Std Deviation 49.3 H, RDW Coeff of Francis 14.0, Plt Count 594 H, MPV 9.0, Immature Gran % (Auto) 2.800 H, Neut % (Auto) 75.5 H, Lymph % (Auto) 12.5 L, [place] % (Auto) 8.2, Eos % (Auto) 0.5, Baso % (Auto) 0.5, Absolute Neuts (auto) 9.7 H, Absolute Lymphs (auto) 1.59, Nucleated RBC % 0, Sodium 137, Potassium 3.0 L, Chloride 112 H, Carbon Dioxide 16.0 L, Anion Gap 9, BUN 8, Creatinine 0.68, Estim Creat Clear Calc 73.12, Est GFR (MDRD) Af Amer 111, Est GFR (MDRD) Non-Af 92, BUN/Creatinine Ratio 11.7, Glucose 112 H, Calcium 8.6, Total Bilirubin 0.30, AST 103 H, ALT 71 H, Alkaline Phosphatase 168 H, Total Protein 6.1 L, Albumin 1.8 L, Globulin 4.3 H, Albumin/Globulin Ratio 0.4 L Micro: Microbiology 12/11/23 03:00 Interface Orders Enteric Bacteriology - Final 12/09/23 11:55 Blood Culture (Wb) - Anticubital Left Blood Culture - Preliminary No growth in 48 hours. 12/09/23 11:15 Blood Culture (Wb) - Anticubital Left Blood Culture - Preliminary No growth in 48 hours. 12/11/23 03:00 Stool Clostridioides difficile (PCR) - Final 12/11/23 03:00 Stool Stool Occult Blood (STEW) - Final 12/09/23 11:09 Urine, Clean Catch Urine Culture - Final Presumptive E. coli 12/11/23 03:00 Urine, Clean Catch Streptococcus pneumoniae Antigen (M - Final 12/11/23 03:00 Urine, Clean Catch Legionella Antigen - Final 12/09/23 15:13 Mucosa - Nose Respiratory Panel (PCR) - Final 12/09/23 10:48 Mucosa - Nose SARS-CoV-2, Influenza & RSV (PCR) - Final Physical Exam Narrative Physical Examination: General: Awake, alert, oriented x 3 and cooperative, seated upright in the VT bed, fatigued. Skin: Normal color, normal turgor, no icterus, no cyanosis except for occasional staged ecchymoses. HEENT: AT/NC, EOMI, PERRLA, poor oral dentition, MMM. Lungs: Improved effort, still diminished, greater bases, right greater than left, no rales, rhonchi or wheezing. Heart: Regular rate and rhythm; no gallop, rub audible. Abdomen: Soft, NTTP, ND, normalized BS. Extremities: No cyanosis, clubbing, or edema. Neurological: Patient awake, alert, oriented as noted, cognitive function intact; pupils equally reactive to light and accommodation, cranial nerves grossly normal, moving all 4 extremities, no focal deficits, strength improving but still remains moderately to severely globally decreased. Psychiatric: Affect appears fatigued, no acute evidence of depressive or anxiety feelings but does have underlying history. Assessment & Plan Assessment/Plan (1) Pneumonia: PLAN: Plan The patient is a 63 y/o F w/ PMHx: COPD, Anxiety and Depression, RLS, HLD, GERD, Chronic back pain/neuropathy, Tobacco use who presents to the [facility] ED on 12/09/23 with history of 3 weeks of progressively worsening fatigue, malaise, decreased appetite with ongoing cough not markedly productive with just mucus coming up with dyspnea worse with exertion with difficulty even crossing the room prompting eventual ED evaluation. #1. Adult Failure to Thrive, Multifactorial, Acute RU and RM Lobe Pneumonia complicated by underlying COPD and Acute E. Coli Complicated UTI: CXR in the ED w/ right upper and right middle lobe infiltrates with CBC with WBC 23.6 with left shift. Admitted to [facility], maintained on oxygen with wean as tolerated to room air, continue ATC budesonide, PRN albuterol, maintained on IV Rocephin and Azithromycin, HOB, IS parameters, full respiratory viral panel negative, urine antigens negative. Urine culture w/ E. Coli >100,000 CFU with sensitivity to rocephin. 12/10/23 Patient with onset of diarrhea through the evening prior suspected likely related to recent initiation of antibiotic therapy; however, to be cautious enteric and C. difficile obtained and negative with loperamide started 12/11/23 as needed. Bld cx x 2 obtained in the ED with NGTD. PT/OT/CM consulted for discharge planning. Given debility and weakness per therapies will need SNF. #2. Hyponatremia, suspect acute component, likely hypovolemic: Admission sodium 129, chloride 108, judiciously hydrated, 12/11/23 Na 137->12/12/23 Na 135, continue to trend. #3. Elevated LFTs, unclear chronicity: Admission CMP with T. bili 0.20, AST/ALT 169/73, alk phos 116, unclear baseline as no comparison, unclear exact etiology, potentially associate with acute presentation as noted #1, 12/12/2023 AST/ALT 83/70, alk phos 229, LFTs somewhat improved although ALT is stable and alk phos is risen some, hepatitis panel pending, continue to trend. #4. Hypokalemia: Admission K+ 2.7, magnesium 2.2, supplementation given, repeat level evening 12/09/23 3.0 and 12/10/23 AM K 2.5, given additional oral and IV supplementation, 12/12/23 K+ 3.2 with scheduled oral supplementation started, additional supplementation given, continue to trend. #5. Acute kidney injury, initially was uncertain as could have been chronic kidney disease or insufficiency on CKD but was initially unable to determine given no comparison: Suspect TYRA secondary to acute illness. Admission BUN/Cr 34/1.39, prior baseline creatinine had been unknown. Hydrated, held nephrotoxic medications. 12/10/23 BUN/Cr 18/0.95, thus given > .3 change would be consistent with TYRA. 12/12/23 BUN/Cr 7/0.71. #6. Normocytic anemia, unclear chronicity, appears consistent with AOCD: Admission hemoglobin 9.3, MCV 98.9, no comparison, suspect likely chronic,but unclear, hydrated thus suspected repeat would be lower. Vitamin B12 397, iron 26, TIBC 134, iron saturation 19.4, ferritin 544, folate acid 13.10, more consistent with AOCD but folic acid/vitamin B12 certainly on lower end thus will start on oral folic acid supplementation and administer IM 1,000 mcg B12 x 1. Stool guiac negative. 12/11/24 Hgb 7.8, MCV 96.2-->12/12/23 Hgb 8.2, MCV 95.2, vacillating, potentially 7-8 is more her baseline but will continue to monitor. #7. Anxiety and depression: We will continue patient home low-dose alprazolam, escitalopram, clarifying but also appears to be on mirtazapine. #8. Chronic pain, neuropathy: We will continue patient home gabapentin regimen. Patient is also on chronic methocarbamol, will cautiously monitor function given unclear baseline and hold if worsening. #9. Restless leg syndrome: We will continue patient home Requip home regimen. #10. Hyperlipidemia: We will continue patient on statin therapy. #11. GERD: We will continue patient home PPI. #12. Tobacco Abuse: Encouraged cessation, inpatient consultation per RT, NR if desired. #13. DVT prophylaxis: Lovenox. #14. CODE status: Patient HCPOA and LW are not in place but her brother Jose would be her decision maker if needed. Full Code status. Charges/Coding Visit Charges Inpatient E&M: 45747 Subs Hosp L2
[2023-12-12 06:32] LABS: Absolute Lymphocyte Count 1.76 X10^3/uL (0.83-4.51); Basophil# 0.05 X10^3/uL; Basophil% 0.3 % (0-1); Eosinophil# 0.12 X10^3/uL; Eosinophils% 0.8 % (0-5); Hematocrit 23.8 % (37-47); Hemoglobin 8.2 g/dL (12.0-15.0); Lymphocyte # 1.76 X10^3/ul (0.83-4.51); Lymphocyte % 11.4 % (19-41); Mean Corp Hgb Conc 34.5 g/dL (32-36); Mean Corpuscular Hgb 32.8 pg (27.0-32.0); Mean Corpuscular Volume 95.2 fL (81-99); Mean Platelet Vol. 9.1 fl (6.2-12.0); Monocyte# 1.15 X10^3/uL; Monocyte% 7.4 % (0-10); NRBC Flagged by Analyzer 0 % (0-5); Neutrophil # 11.99 X10^3/uL (2.7-7.7); Neutrophil % 77.5 % (47-70); Platelet Count 632 K/mm3 (150-450); RBC Distribution Width CV 13.9 % (11.6-14.6); RBC Distribution Width SD 48.7 fl (35.1-43.9); White Blood Count 15.5 K/mm3 (4.4-11.0)
[2023-12-12 07:06] LABS: ALB/GLOB Ratio 0.4 RATIO (0.9-2.4); AST(SGOT) 83 U/L (15-37); Alanine Aminotransfer ALT/SGPT 70 U/L (13-56); Albumin, Serum 1.9 g/dL (3.2-5.0); Alkaline Phosphatase 229 U/L (45-117); Anion Gap 8 (5-15); BUN 7 mg/dL (7-18); BUN/Creat Ratio 9.9 RATIO (10-20); Calcium,Total 8.9 mg/dL (8.5-10.1); Chloride 109 mmol/L (98-107); Creatinine, Serum 0.71 mg/dL (0.55-1.02); EST Glomerular Filtration Rate 89 mL/min (>60); Est Glom Filt Rate - Afr Amer 107 mL/min (>60); Estimated Creatinine Clearance 70.03 ml/min; Globulin 4.4 g/dL (2.2-4.2); Glucose 117 mg/dL (74-106); Potassium 3.2 mmol/L (3.5-5.1); Protein, Total 6.3 g/dL (6.4-8.2); Sodium Level 135 mmol/L (136-145)
[2023-12-12] MEDS: Ceftriaxone 1 GM/50 ML BAG IV (09:33)
[2023-12-12] MEDS: Enoxaparin 40 MG/0.4 ML Syringe SC (09:34)
[2023-12-12] MEDS: Colestipol 1 GM TABLET PO ×2 (09:34→20:53)
[2023-12-12] MEDS: Famotidine 20 MG Tablet 40 MG PO (09:34)
[2023-12-12] MEDS: ALPRAZolam 0.5 MG Tablet PO ×2 (09:34→20:51)
[2023-12-12] MEDS: Escitalopram Oxalate 20 MG Tablet PO (09:35)
[2023-12-12] MEDS: Pantoprazole Sodium 40 MG Tablet PO ×2 (09:35→20:51)
[2023-12-12] MEDS: Azithromycin 500 MG in Dextrose 5%-Water (250mL Bag) 250 ML 250 MG IV (10:23)
[2023-12-12] MEDS: Potassium Chloride Oral Tablet 20 MEQ PO ×2 (14:26→17:03)
[2023-12-12] MEDS: Folic Acid 1 MG Tablet PO (14:26)
[2023-12-12] MEDS: Cyanocobalamin (B12) 1,000 MCG/ML Vial 1000 MCG IM (14:26)
[2023-12-12] MEDS: Budesonide Respules 0.5 MG/2 ML AMPUL.NEB. INHALATION (19:27)
[2023-12-12] MEDS: Albuterol 2.5 MG/3 ML VIAL.NEB. INHALATION (19:27)
[2023-12-12] MEDS: Ensure Plus High Protein 120 ML LIQUID PO (20:51)
[2023-12-12] MEDS: Atorvastatin Calcium 10 MG Tablet PO (20:51)
[2023-12-12] MEDS: Pramipexole Di-HCl 0.5 MG Tablet PO (20:52)
[2023-12-12] MEDS: Mirtazapine 15 MG Tablet PO (20:52)
[2023-12-13 03:00] VITALS: BP 111/63; PULSE 80; RESP 16; TEMP 36.4; O2SAT 97
[2023-12-13] MEDS: Gabapentin 600 MG Tablet PO ×3 (05:49→20:14)
[2023-12-13 06:00] VITALS: BMI 21.7
--- NOTE | 2023-12-13 06:11 | PN.HOSP_ITS ---
Reason for Visit Reason for Visit: Diagnoses Pneumonia, unspecified organism (12/09/23) Subjective Subjective Patient with no acute events overnight per self and per nursing report. She notes she feels as though she is improving but still very weak and needs logging assistant. She does states she is breathing better and coughing less. She is more awake and interactive this morning than the last 2 days. Patient denies fevers, chills, nausea, emesis, abdominal pain, chest pain or worsened dyspnea. Objective Data Objective Data Vital Signs: Vital Signs Temp Pulse Resp BP Pulse Ox O2 Del Method 97.5 F L 80 16 111/63 97 Room Air 12/13/23 03:00 12/13/23 03:00 12/13/23 03:00 12/13/23 03:00 12/13/23 03:00 12/13/23 03:00 Oxygen Delivery Method Room Air Weight: 126 lb 15.78 oz Body Mass Index (BMI) 21.7 Intake & Output: Intake and Output for Last 24 Hours 12/11/23 12/12/23 12/13/23 23:59 23:59 23:59 Intake Total 805 / 805 1005 / 1005 Output Total 200 / 200 Balance 605 / 605 1005 / 1005 Lab / Micro Data 12/13/23 06:20 12/13/23 06:20 Labs: Laboratory Results - last 24 hr 12/12/23 06:10: WBC 15.5 H, RBC 2.50 L, Hgb 8.2 L, Hct 23.8 L, MCV 95.2, MCH 32.8 H, MCHC 34.5, RDW Std Deviation 48.7 H, RDW Coeff of Francis 13.9, Plt Count 632 H, MPV 9.1, Immature Gran % (Auto) 2.600 H, Neut % (Auto) 77.5 H, Lymph % (Auto) 11.4 L, [place] % (Auto) 7.4, Eos % (Auto) 0.8, Baso % (Auto) 0.3, Absolute Neuts (auto) 12.0 H, Absolute Lymphs (auto) 1.76, Nucleated RBC % 0, Sodium 135 L, Potassium 3.2 L, Chloride 109 H, Carbon Dioxide 18.0 L, Anion Gap 8, BUN 7, Creatinine 0.71, Estim Creat Clear Calc 70.03, Est GFR (MDRD) Af Amer 107, Est GFR (MDRD) Non-Af 89, BUN/Creatinine Ratio 9.9 L, Glucose 117 H, Calcium 8.9, Total Bilirubin 0.50, AST 83 H, ALT 70 H, Alkaline Phosphatase 229 H, Total Protein 6.3 L, Albumin 1.9 L, Globulin 4.4 H, Albumin/Globulin Ratio 0.4 L Micro: Microbiology 12/11/23 03:00 Interface Orders Enteric Bacteriology - Final 12/09/23 11:55 Blood Culture (Wb) - Anticubital Left Blood Culture - Preliminary No growth in 48 hours. 12/09/23 11:15 Blood Culture (Wb) - Anticubital Left Blood Culture - Prelimi nary No growth in 48 hours. 12/11/23 03:00 Stool Clostridioides difficile (PCR) - Final 12/11/23 03:00 Stool Stool Occult Blood (STEW) - Final 12/09/23 11:09 Urine, Clean Catch Urine Culture - Final Presumptive E. coli 12/11/23 03:00 Urine, Clean Catch Streptococcus pneumoniae Antigen (M - Final 12/11/23 03:00 Urine, Clean Catch Legionella Antigen - Final 12/09/23 15:13 Mucosa - Nose Respiratory Panel (PCR) - Final 12/09/23 10:48 Mucosa - Nose SARS-CoV-2, Influenza & RSV (PCR) - Final Physical Exam Narrative Physical Examination: General: Awake, alert, oriented x 3 and cooperative, laying in the MS bed, more alert and interactive today. Skin: Normal color, normal turgor, no icterus, no cyanosis except for occasional staged ecchymoses. HEENT: AT/NC, EOMI, PERRLA, poor oral dentition, MMM. Lungs: Improved effort, diminished, greater bases, right greater than left but improving, no evidence of any distress, no rales, rhonchi or wheezing. Heart: Regular rate and rhythm; no gallop, rub audible. Abdomen: Soft, NTTP, ND, normalized BS. Extremities: No cyanosis, clubbing, or edema. Neurological: Patient awake, alert, oriented as noted, cognitive function intact; pupils equally reactive to light and accommodation, cranial nerves grossly normal, moving all 4 extremities, no focal deficits, strength improving, moderately globally decreased. Psychiatric: Affect appears more interactive, less fatigue, no acute evidence of depressive or anxiety feelings but does have underlying history. Assessment & Plan Assessment/Plan (1) Pneumonia: PLAN: Plan The patient is a 63 y/o F w/ PMHx: COPD, Anxiety and Depression, RLS, HLD, GERD, Chronic back pain/neuropathy, Tobacco use who presents to the [facility] ED on 12/09/23 with history of 3 weeks of progressively worsening fatigue, malaise, decreased appetite with ongoing cough not markedly productive with just mucus coming up with dyspnea worse with exertion with difficulty even crossing the room prompting eventual ED evaluation. #1. Adult Failure to Thrive, Multifactorial, Acute RU and RM Lobe Pneumonia complicated by underlying COPD and Acute E. Coli Complicated UTI: CXR in the ED w/ right upper and right middle lobe infiltrates with CBC with WBC 23.6 with left shift. [facility], maintained on oxygen with wean as tolerated to room air, continue ATC budesonide, PRN albuterol, maintained on IV Rocephin and Azithromycin, HOB, IS parameters, full respiratory viral panel negative, urine antigens negative. Urine culture w/ E. Coli >100,000 CFU with sensitivity to rocephin. 12/10/23 Patient with onset of diarrhea through the evening prior suspected likely related to recent initiation of antibiotic therapy; however, to be cautious enteric and C. difficile obtained and negative with loperamide started 12/11/23 as needed. Bld cx x 2 obtained in the ED with NGTD. PT/OT/CM co nsulted for discharge planning. Given debility and weakness per therapies will need SNF, awaiting prior authorization with potentially transition Thursday or Thursday. #2. Hyponatremia, suspect acute component, likely hypovolemic: Admission sodium 129, chloride 108, judiciously hydrated, 12/11/23 Na 137->12/13/23 Na 139, appears resolved. #3. Elevated LFTs, unclear chronicity: Admission CMP with T. bili 0.20, AST/ALT 169/73, alk phos 116, unclear baseline as no comparison, unclear exact etiology, potentially associate with acute presentation as noted #1, 12/12/2023 AST/ALT 83/70, alk phos 229, LFTs somewhat improved although ALT is stable and alk phos is risen some, hepatitis panel pending, 12/13/23 T. bili 0.30, AST/ALT 82/70, alk phos 219, minimally changed from day prior. #4. Hypokalemia: Admission K+ 2.7, magnesium 2.2, supplementation given, repeat level evening 12/09/23 3.0 and 12/10/23 AM K 2.5, given additional oral and IV supplementation, 12/12/23 K+ 3.2 with scheduled oral supplementation started, 12/13/23 K+ 2.9 despite scheduled regimen, additional supplementation given, repeat level in AM. #5. Acute kidney injury, initially was uncertain as could have been chronic kidney disease or insufficiency on CKD but was initially unable to determine given no comparison: Suspect TYRA secondary to acute illness. Admission BUN/Cr 34/1.39, prior baseline creatinine had been unknown. Hydrated, held nephrotoxic medications. 12/10/23 BUN/Cr 18/0.95, thus given > .3 change would be consistent with TYRA. 12/13/23 BUN/Cr 7/0.62.. #6. Normocytic anemia, unclear chronicity, appears consistent with AOCD: Admission hemoglobin 9.3, MCV 98.9, no comparison, suspect likely chronic,but unclear, hydrated thus suspected repeat would be lower. Vitamin B12 397, iron 26, TIBC 134, iron saturation 19.4, ferritin 544, folate acid 13.10, more consistent with AOCD but folic acid/vitamin B12 certainly on lower end thus will start on oral folic acid supplementation and administer IM 1,000 mcg B12 x 1. Stool guiac negative. 12/11/24 Hgb 7.8, MCV 96.2-->12/12/23 Hgb 8.2, MCV 95.2-->12/13/23 Hgb 7.8, vacillating, potentially 7-8 is more her baseline but will continue to monitor. #7. Anxiety and depression: We will continue patient home low-dose alprazolam, escitalopram, clarifying but also appears to be on mirtazapine. #8. Chronic pain, neuropathy: We will continue patient home gabapentin regimen. Patient is also on chronic methocarbamol, will cautiously monitor function given unclear baseline and hold if worsening. #9. Restless leg syndrome: We will continue patient home Requip home regimen. #10. Hyperlipidemia: We will continue patient on statin therapy. #11. GERD: We will continue patient home PPI. #12. Tobacco Abuse: Encouraged cessation, inpatient consultation per RT, NR if desired. #13. DVT prophylaxis: Lovenox. #14. CODE status: Patient HCPOA and LW are not in place but her brother Jose would be her decision maker if needed. Full Code status. Charges/Coding Visit Charges Inpatient E&M: 74909 Subs Hosp L2
[2023-12-13 06:37] LABS: Absolute Lymphocyte Count 1.65 X10^3/uL (0.83-4.51); Absolute Neutrophil Count 6.2 X10^3/uL (2.0-7.7); Basophil# 0.07 X10^3/uL; Basophil% 0.8 % (0-1); Eosinophil# 0.13 X10^3/uL; Eosinophils% 1.4 % (0-5); Hemoglobin 7.8 g/dL (12.0-15.0); Lymphocyte # 1.65 X10^3/ul (0.83-4.51); Lymphocyte % 17.8 % (19-41); Mean Corp Hgb Conc 33.9 g/dL (32-36); Mean Corpuscular Hgb 33.1 pg (27.0-32.0); Mean Corpuscular Volume 97.5 fL (81-99); Mean Platelet Vol. 9.1 fl (6.2-12.0); Monocyte# 0.77 X10^3/uL; Monocyte% 8.3 % (0-10); NRBC Flagged by Analyzer 0 % (0-5); Neutrophil # 6.15 X10^3/uL (2.7-7.7); Neutrophil % 66.2 % (47-70); POSITIVE COUNT YES; POSITIVE MORPHOLOGY YES; Platelet Count 622 K/mm3 (150-450); RBC Distribution Width CV 14.1 % (11.6-14.6); RBC Distribution Width SD 50.3 fl (35.1-43.9); Red Blood Count 2.36 M/mm3 (4.2-5.4); White Blood Count 9.3 K/mm3 (4.4-11.0)
[2023-12-13 06:48] LABS: Differential Indicated SCAN CRITERIA MET
[2023-12-13 06:57] VITALS: PULSE 85; RESP 16; O2SAT 99
[2023-12-13] MEDS: Budesonide Respules 0.5 MG/2 ML AMPUL.NEB. INHALATION ×2 (06:57→19:50)
[2023-12-13 07:09] LABS: ALB/GLOB Ratio 0.4 RATIO (0.9-2.4); AST(SGOT) 82 U/L (15-37); Alanine Aminotransfer ALT/SGPT 70 U/L (13-56); Albumin, Serum 1.9 g/dL (3.2-5.0); Alkaline Phosphatase 219 U/L (45-117); Anion Gap 7 (5-15); BUN 7 mg/dL (7-18); BUN/Creat Ratio 11.3 RATIO (10-20); Calcium,Total 8.6 mg/dL (8.5-10.1); Chloride 110 mmol/L (98-107); Creatinine, Serum 0.62 mg/dL (0.55-1.02); EST Glomerular Filtration Rate 103 mL/min (>60); Est Glom Filt Rate - Afr Amer 125 mL/min (>60); Globulin 4.4 g/dL (2.2-4.2); Glucose 112 mg/dL (74-106); Potassium 2.9 mmol/L (3.5-5.1); Protein, Total 6.3 g/dL (6.4-8.2); Sodium Level 139 mmol/L (136-145)
[2023-12-13] MEDS: Pantoprazole Sodium 40 MG Tablet PO ×2 (07:30→20:14)
[2023-12-13] MEDS: Potassium Chloride Oral Tablet 20 MEQ PO ×3 (07:30→17:09)
[2023-12-13] MEDS: Famotidine 20 MG Tablet 40 MG PO (07:30)
[2023-12-13] MEDS: Escitalopram Oxalate 20 MG Tablet PO (07:31)
[2023-12-13] MEDS: Folic Acid 1 MG Tablet PO (07:31)
[2023-12-13] MEDS: Enoxaparin 40 MG/0.4 ML Syringe SC (07:32)
[2023-12-13] MEDS: Ceftriaxone 1 GM/50 ML BAG IV (08:44)
[2023-12-13] MEDS: ALPRAZolam 0.5 MG Tablet PO ×2 (08:45→20:14)
[2023-12-13] MEDS: Colestipol 1 GM TABLET PO ×2 (08:45→20:13)
[2023-12-13] MEDS: Ensure Plus High Protein 120 ML LIQUID PO ×3 (08:45→17:09)
[2023-12-13 08:59] VITALS: BP 117/57; PULSE 78; RESP 18; TEMP 36.8; O2SAT 98
[2023-12-13] MEDS: Azithromycin 500 MG in Dextrose 5%-Water (250mL Bag) 250 ML 250 MG IV (09:56)
[2023-12-13 15:00] VITALS: BP 113/61; PULSE 85; RESP 16; TEMP 36.4; O2SAT 99
[2023-12-13] MEDS: Mag Hydrox/Al Hydrox/Simeth 30 ML UDC PO (19:03)
[2023-12-13] MEDS: Albuterol 2.5 MG/3 ML VIAL.NEB. INHALATION (19:50)
[2023-12-13 19:51] VITALS: PULSE 84; RESP 20; O2SAT 99
[2023-12-13] MEDS: Atorvastatin Calcium 10 MG Tablet PO (20:14)
[2023-12-13] MEDS: Pramipexole Di-HCl 0.5 MG Tablet PO (20:14)
[2023-12-13] MEDS: Mirtazapine 15 MG Tablet PO (20:14)
[2023-12-13 20:21] VITALS: BP 130/54; PULSE 90; RESP 16; TEMP 36.6; O2SAT 97
[2023-12-14 03:00] VITALS: BP 106/57; PULSE 83; RESP 16; TEMP 36.6; O2SAT 97
[2023-12-14] MEDS: Gabapentin 600 MG Tablet PO ×3 (05:04→21:10)
[2023-12-14 05:34] VITALS: BMI 21.3
[2023-12-14 07:04] VITALS: PULSE 86; RESP 18; O2SAT 96
[2023-12-14] MEDS: Budesonide Respules 0.5 MG/2 ML AMPUL.NEB. INHALATION (07:04)
[2023-12-14 07:39] LABS: Absolute Lymphocyte Count 1.83 X10^3/uL (0.83-4.51); Absolute Neutrophil Count 6.8 X10^3/uL (2.0-7.7); Basophil# 0.07 X10^3/uL; Basophil% 0.7 % (0-1); Eosinophil# 0.14 X10^3/uL; Eosinophils% 1.4 % (0-5); Hematocrit 23.8 % (37-47); Lymphocyte # 1.83 X10^3/ul (0.83-4.51); Lymphocyte % 18.1 % (19-41); Mean Corp Hgb Conc 33.6 g/dL (32-36); Mean Corpuscular Hgb 33.2 pg (27.0-32.0); Mean Corpuscular Volume 98.8 fL (81-99); Mean Platelet Vol. 9.5 fl (6.2-12.0); Monocyte# 0.82 X10^3/uL; Monocyte% 8.1 % (0-10); NRBC Flagged by Analyzer 0 % (0-5); Neutrophil # 6.83 X10^3/uL (2.7-7.7); Neutrophil % 67.5 % (47-70); Platelet Count 627 K/mm3 (150-450); RBC Distribution Width CV 14.3 % (11.6-14.6); RBC Distribution Width SD 51.6 fl (35.1-43.9); Red Blood Count 2.41 M/mm3 (4.2-5.4); White Blood Count 10.1 K/mm3 (4.4-11.0)
[2023-12-14 08:35] LABS: ALB/GLOB Ratio 0.5 RATIO (0.9-2.4); AST(SGOT) 56 U/L (15-37); Alanine Aminotransfer ALT/SGPT 62 U/L (13-56); Alkaline Phosphatase 194 U/L (45-117); Anion Gap 8 (5-15); BUN 9 mg/dL (7-18); BUN/Creat Ratio 15.5 RATIO (10-20); Calcium,Total 9.1 mg/dL (8.5-10.1); Chloride 111 mmol/L (98-107); Creatinine, Serum 0.58 mg/dL (0.55-1.02); EST Glomerular Filtration Rate 111 mL/min (>60); Est Glom Filt Rate - Afr Amer 135 mL/min (>60); Estimated Creatinine Clearance 85.73 ml/min; Globulin 4.4 g/dL (2.2-4.2); Glucose 106 mg/dL (74-106); Potassium 3.5 mmol/L (3.5-5.1); Protein, Total 6.4 g/dL (6.4-8.2); Sodium Level 139 mmol/L (136-145)
[2023-12-14 09:18] LABS: Hepatitis B Surface Antibody Non-Reactive; Hepatitis B Surface Antigen Non-Reactive (Nonreactive); Hepatitis C Antibody Non-Reactive (Nonreactive)
[2023-12-14 09:30] VITALS: BP 115/48; PULSE 80; RESP 18; TEMP 37; O2SAT 98
[2023-12-14] MEDS: Famotidine 20 MG Tablet 40 MG PO (09:31)
[2023-12-14] MEDS: Escitalopram Oxalate 20 MG Tablet PO (09:31)
[2023-12-14] MEDS: Potassium Chloride Oral Tablet 20 MEQ PO ×2 (09:31→17:51)
[2023-12-14] MEDS: Pantoprazole Sodium 40 MG Tablet PO ×2 (09:31→21:05)
[2023-12-14] MEDS: Folic Acid 1 MG Tablet PO (09:31)
[2023-12-14] MEDS: Enoxaparin 40 MG/0.4 ML Syringe SC (09:31)
[2023-12-14] MEDS: Acetaminophen 325 MG Tablet 650 MG PO ×3 (09:31→21:38)
[2023-12-14] MEDS: Colestipol 1 GM TABLET PO ×2 (09:32→19:47)
[2023-12-14] MEDS: Ensure Plus High Protein 120 ML LIQUID PO (09:32)
[2023-12-14] MEDS: Ceftriaxone 1 GM/50 ML BAG IV (09:32)
[2023-12-14] MEDS: 0.9% Saline Lock 10 ML Syringe IV ×2 (09:32→10:51)
[2023-12-14] MEDS: ALPRAZolam 0.5 MG Tablet PO ×2 (09:32→21:10)
[2023-12-14] MEDS: Azithromycin 500 MG in Dextrose 5%-Water (250mL Bag) 250 ML 250 MG IV (10:51)
--- NOTE | 2023-12-14 11:32 | CASEMGMT ---
Discharge Planning Met with patient to update on referral to OP being declined. Next choices are [facility] and [facility]. Referrals sent via [facility] to both. Alyssa Perez, Discharge Planning Asst.
[2023-12-14 13:43] LABS: Pathologist Review Reviewed
[2023-12-14 14:10] VITALS: BP 111/70; PULSE 80; RESP 18; TEMP 36.8; O2SAT 100
--- NOTE | 2023-12-14 15:50 | CASEMGMT ---
Social Work Collaboration discharge transit planning manager Alyssa today on referral status on [facility] facilities. [facility] will allow smoking, four times a day/supervised, and then additionally if there are family or friends present to take the patient not to smoke. All smoking must be supervised however. With patient in room, introducing the self and reason for visit. Discussed need to revisit discharge planning. Educated patient that [facility] will allow smoking, and the facility is willing to accept the patient. Patient voice that does not want to go to nursing facility and does not want the facility to have control over patient in this way. Patient reports desire to return home with home healthcare. Patient adamantly reports to feel safe with going home with home healthcare, to have needed medical equipment, and to have good neighbors who can check on the patient. Patient reports to have food in the house and people to call if needed. This radio script writer agreed to update manager ethics on patient's wish to return home rather than [facility] facility. Updated Joaquim MENDEZ CM as well as Alyssa discharge transit planning manager. Alyssa working on finding and network home health agencies. Updated Dr. Bruce. Plan: now looking at skilled home healthcare at time of discharge. VANESSA VASQUEZ, discharge transit planning manager, and social work all following. -GEOVANY Valdez, ASSOCIATE PROFESSOR OF FORESTRY
--- NOTE | 2023-12-14 15:53 | CASEMGMT ---
Discharge Planning HH referrral sent to [facility], [facility], [facility], [facility], [facility], [facility], [facility], and [facility]. Alyssa Perez, Discharge Planning Asst.
--- NOTE | 2023-12-14 16:05 | CASEMGMT ---
VANESSA CM to pt room at this time for DC planning. Pt states that if she is not accepted by a [facility] agency than she would revisit the idea of going to a SNF. Pt states that she would refuse OP therapy. DC parts room assistant and SW updated.
--- NOTE | 2023-12-14 17:30 | PCM.PN.HOSP ---
Reason for Visit Reason for Visit: Diagnoses Pneumonia, unspecified organism (12/09/23) Subjective Subjective Patient was seen and examined today, she has decided she would like to try to go home rather than go to a retirement facility, we are attempting to arrange home health for the patient at this time. Objective Data Objective Data Vital Signs: Vital Signs Temp Pulse Resp BP Pulse Ox O2 Del Method 98.3 F 80 18 111/70 100 Room Air 12/14/23 14:10 12/14/23 14:10 12/14/23 14:10 12/14/23 14:10 12/14/23 14:10 12/14/23 14:10 Oxygen Delivery Method Room Air Weight: 56.6 kg Body Mass Index (BMI) 21.3 Intake & Output: Intake and Output for Last 24 Hours 12/12/23 12/13/23 12/14/23 23:59 23:59 23:59 Intake Total 1005 / 1005 1205 / 1205 545.00 / 545.00 Balance 1005 / 1005 1205 / 1205 545.00 / 545.00 Lab / Micro Data 12/14/23 06:19 12/14/23 06:19 Labs: Laboratory Results - last 24 hr 12/13/23 06:20: Diff Path Review Reviewed, Hep Bs Antigen Non-Reactive, Hep Bs Antibody Non-Reactive, Hepatitis C Antibody Non-Reactive 12/14/23 06:19: WBC 10.1, RBC 2.41 L, Hgb 8.0 L, Hct 23.8 L, MCV 98.8, MCH 33.2 H, MCHC 33.6, RDW Std Deviation 51.6 H, RDW Coeff of Francis 14.3, Plt Count 627 H, MPV 9.5, Immature Gran % (Auto) 4.200 H, Neut % (Auto) 67.5, Lymph % (Auto) 18.1 L, [place] % (Auto) 8.1, Eos % (Auto) 1.4, Baso % (Auto) 0.7, Absolute Neuts (auto) 6.8, Absolute Lymphs (auto) 1.83, Nucleated RBC % 0, Sodium 139, Potassium 3.5, Chloride 111 H, Carbon Dioxide 20.0 L, Anion Gap 8, BUN 9, Creatinine 0.58, Estim Creat Clear Calc 85.73, Est GFR (MDRD) Af Amer 135, Est GFR (MDRD) Non-Af 111, BUN/Creatinine Ratio 15.5, Glucose 106, Calcium 9.1, Total Bilirubin 0.20, AST 56 H, ALT 62 H, Alkaline Phosphatase 194 H, Total Protein 6.4, Albumin 2.0 L, Globulin 4.4 H, Albumin/Globulin Ratio 0.5 L Micro: Microbiology 12/09/23 11:55 Blood Culture (Wb) - Anticubital Left Blood Culture - Final No growth in 5 days. 12/09/23 11:15 Blood Culture (Wb) - Anticubital Left Blood Culture - Final No growth in 5 days. 12/11/23 03:00 Interface Orders Enteric Bacteriology - Final 12/11/23 03:00 Stool Clostridioides difficile (PCR) - Final 12/11/23 03:00 Stool Stool Occult Blood (STEW) - Final 12/09/23 11:09 Urine, Clean Catch Urine Culture - Final Presumptive E. coli 12/11/23 03:00 Urine, Clean Catch Streptococcus pneumoniae Antigen (M - Final 12/11/23 03:00 Urine, Clean Catch Legionella Antigen - Final 12/09/23 15:13 Mucosa - Nose Respiratory Panel (PCR) - Final 12/09/23 10:48 Mucosa - Nose SARS-CoV-2, Influenza & RSV (PCR) - Final Physical Exam Const alert, oriented x3, no apparent distress and healthy appearing General Appearance: cooperative, well kempt and well developed Orientation / Consciousness: awake, oriented to person, oriented to place and oriented to time HEENT normocephalic, head/scalp atraumatic and moist oral mucous membranes Eyes PERRL, EOMs intact bilaterally and conjunctivae normal Neck supple, no JVD, thyroid normal and no carotid bruits General: trachea midline Resp normal respiratory effort, no retractions, no use of accessory muscles and clear to auscultation bilaterally Auscultation: Negative for rales, rhonchi or wheezes Cardio regular rate, regular rhythm, S1 normal heart sound, S2 normal heart sound, no murmurs, no rub and no gallops GI normal to inspection, nondistended, normoactive bowel sounds, soft to palpation, non-tender and non-distended Extremity no clubbing, cyanosis or edema Skin no rashes or lesions noted General Skin Exam: no breakdown Neuro oriented x3, CN's II-XII intact bilaterally, moves all extremities, no focal motor deficits and no sensory deficits noted Sensorium / Orientation: awake and alert Speech: speech normal Psych affect normal Assessment & Plan Assessment/Plan (1) Pneumonia: PLAN: Plan 1. Pneumonia-patient will be transitioned over to oral antibiotics to complete a 7-day course #2 urinary tract infection with E. coli-again patient will be placed on oral antibiotics #3 acute debility-patient now feels as though she could go home with home health, we will try to make arrangements tomorrow #4 hypokalemia-corrected at this time, repeat BMP as needed #5 chronic anemia-etiology unclear, patient's iron studies indicate an acute phase reaction rather than iron deficiency anemia., Patient will need follow-up as an outpatient #6 chronic depression-patient is on Lexapro Total clinical time spent by myself addressing the patient's medical issues, reviewing all of her data, and collaborating with patient's care team: 25 minutes Charges/Coding Visit Charges Inpatient E&M: 52102 Subs Hosp L1
[2023-12-14 20:57] VITALS: BP 111/58; PULSE 78; RESP 16; TEMP 36.9; O2SAT 97
[2023-12-14] MEDS: Pramipexole Di-HCl 0.5 MG Tablet PO (21:05)
[2023-12-14] MEDS: Atorvastatin Calcium 10 MG Tablet PO (21:06)
[2023-12-14] MEDS: Mirtazapine 15 MG Tablet PO (21:06)
[2023-12-15 02:35] VITALS: BP 114/60; PULSE 71; RESP 16; TEMP 36.3; O2SAT 100
[2023-12-15 02:37] VITALS: O2SAT 100
[2023-12-15] MEDS: Gabapentin 600 MG Tablet PO (05:00)
[2023-12-15 06:00] VITALS: BMI 20.9
[2023-12-15 07:25] VITALS: PULSE 86; RESP 18; O2SAT 98
[2023-12-15] MEDS: Budesonide Respules 0.5 MG/2 ML AMPUL.NEB. INHALATION (07:25)
[2023-12-15 08:12] LABS: HEPATITIS B SURFACE AG Negative (Negative); Hep C Antibodies Non Reactive (Non Reactive); Hepatitis A IgM Antibody Negative (Negative); Hepatitis B Core AB IgM Negative (Negative)
[2023-12-15 08:25] VITALS: BP 116/64; PULSE 77; RESP 18; TEMP 36.6; O2SAT 99
[2023-12-15] MEDS: Folic Acid 1 MG Tablet PO (08:28)
[2023-12-15] MEDS: Colestipol 1 GM TABLET PO (08:28)
[2023-12-15] MEDS: Enoxaparin 40 MG/0.4 ML Syringe SC (08:28)
[2023-12-15] MEDS: Cefdinir 300 MG Capsule 600 MG PO (08:29)
[2023-12-15] MEDS: Potassium Chloride Oral Tablet 20 MEQ PO (08:29)
[2023-12-15] MEDS: Escitalopram Oxalate 20 MG Tablet PO (08:29)
[2023-12-15] MEDS: ALPRAZolam 0.5 MG Tablet PO (08:29)
[2023-12-15] MEDS: Pantoprazole Sodium 40 MG Tablet PO (08:29)
[2023-12-15] MEDS: Famotidine 20 MG Tablet 40 MG PO (08:29)
[2023-12-15] MEDS: Acetaminophen 325 MG Tablet 650 MG PO (08:29)
--- NOTE | 2023-12-15 09:58 | CASEMGMT ---
Social Work SW spoke w/pt in room in regard to discharge plan. Pt states plans to return home at discharge, states does not need long term facility at this time. SW explained we have not been able to find a home health agency to take her, she states that she does not need it, she has people to help her. SW offered outpt therapy, pt declined a referral for this as well. Plan now is home, no needs. SW texted physican to let him know. GEOVANY Hickman
--- NOTE | 2023-12-15 10:23 | CASEMGMT ---
Addendum entered by Ke Sands 12/15/23 13:56: Pt DC order in. [facility] has still not responded to the referral and they have not called this RN CHRISTINA back. Pt does not have any new medication orders. Pt states she is comfortable DC home at this time and denies further needs. Original Note: All agencies have denied the pt e/f [facility] and [facility] as they have not responded in [facility]. TC to [facility] at this time and no answer, voice message left. TC to [facility] at this time and they decline the pt d/t insurance. VANESSA VASQUEZ to pt room at this time. Pt states that she is refusing SNF and OP therapy. Pt states that she wants to go home and feels safe doing so. Pt states her friend will pick her up from the hospital today. Pt denies further needs at this time. Will follow for DC instructions and potential acceptance from [facility].
--- NOTE | 2023-12-15 13:36 | PCM.DC ---
Discharge Instructions Diet Discharge Diet: No restrictions Activity Discharge Activity: Return to Normal Activity Weight Bearing Status: Full weight bearing Follow Up Care Test Results: Test results from this visit will be discussed in further detail at your follow-up appointment, if applicable. Discharge Plan Admission Admit Date/Time: 12/09/23 12:51 Primary Reason for Your Visit: pneumonia Attending Provider: Cristiano Bruce Primary Care Provider: Lydia Flores NP Consulting Providers: Manjula Hopkins Discharge Orders/Prescriptions Prescriptions: Continued alprazolam 0.5 mg tablet 0.5 mg PO BID escitalopram oxalate 20 mg tablet 20 mg PO DAILY gabapentin 600 mg tablet 600 mg PO TID mirtazapine 15 mg tablet 15 mg PO QHS ondansetron HCl 4 mg tablet 4 mg PO Q8H PRN (Reason: nausea and vomiting) ropinirole 1 mg tablet 1 mg PO QHS rosuvastatin [Crestor] 5 mg tablet 5 mg PO DAILY zaleplon 5 mg capsule 5 mg PO QHS PRN (Reason: sleep) Rx Instructions: must avoid high-fat meal/food immediately before taking dose colestipol [Colestid] 1 gram tablet 1 g PO BID methocarbamol 750 mg tablet 750 mg PO TID pantoprazole [Protonix] 40 mg tablet,delayed release (DR/EC) 40 mg PO BID famotidine [Pepcid] 40 mg tablet 40 mg PO BID acetaminophen 500 mg tablet 500 mg PO Q8H PRN (Reason: pain) albuterol sulfate 90 mcg/actuation HFA aerosol inhaler 2 puff inhalation Q6H PRN (Reason: shortness of breath or wheezing) cholecalciferol (vitamin D3) 1 cap PO DAILY Referrals / Follow Up: Lydia Flores MORTAR MIXER OPERATOR, MORTAR MIXER OPERATOR-C [Primary Care Provider] - Within 2 Weeks (He will need a renal profile checked due to your low potassium in the hospital) Disposition Disposition (needs filled in before D/C Order can be placed): Home, Self Care
--- NOTE | 2023-12-15 13:42 | DS.PCM_ITS ---
Providers Date of Admission: 12/09/23 Date of Discharge: 12/15/23 Primary Care Physician: Lydia Flores, DALIA Reason For Visit: PNEUMONIA, ADULT FTT, TYRA, HYPONATERMIA Diagnosis Discharge Diagnosis (1) Pneumonia: Status: Acute Code(s): J18.9 - Pneumonia, unspecified organism Plan 1. Pneumonia-patient will be transitioned over to oral antibiotics to complete a 7-day course #2 urinary tract infection with E. coli-again patient will be placed on oral antibiotics #3 acute debility-patient now feels as though she could go home with home health, we will try to make arrangements tomorrow #4 hypokalemia-corrected at this time, repeat BMP as needed #5 chronic anemia-etiology unclear, patient's iron studies indicate an acute phase reaction rather than iron deficiency anemia., Patient will need follow-up as an outpatient #6 chronic depression-patient is on Lexapro Total clinical time spent by myself addressing the patient's medical issues, reviewing all of her data, and collaborating with patient's care team: 25 minutes Medications at Discharge Home Medications acetaminophen 500 mg tablet 500 mg PO Q8H PRN pain 12/09/23 albuterol sulfate 90 mcg/actuation aerosol inhaler 2 puff inhalation Q6H PRN shortness of breath or wheezing 12/09/23 alprazolam 0.5 mg tablet 0.5 mg PO BID 12/09/23 cholecalciferol (vitamin D3) 1 cap PO DAILY 12/09/23 colestipol 1 gram tablet (Colestid) 1 g PO BID 12/09/23 escitalopram oxalate 20 mg tablet 20 mg PO DAILY 12/09/23 famotidine 40 mg tablet (Pepcid) 40 mg PO BID 12/09/23 gabapentin 600 mg tablet 600 mg PO TID 12/09/23 methocarbamol 750 mg tablet 750 mg PO TID 12/09/23 mirtazapine 15 mg tablet 15 mg PO QHS 12/09/23 ondansetron HCl 4 mg tablet 4 mg PO Q8H PRN nausea and vomiting 12/09/23 pantoprazole 40 mg tablet,delayed release (Protonix) 40 mg PO BID 12/09/23 ropinirole 1 mg tablet 1 mg PO QHS 12/09/23 rosuvastatin 5 mg tablet (Crestor) 5 mg PO DAILY 12/09/23 zaleplon 5 mg capsule 5 mg PO QHS PRN sleep 12/09/23 Hospital Course Operations None Procedures None Summary of Care Provided Minutes Spent on Discharge: 32 Hospital Course: This 63-year-old white female was seen in the emergency room at [facility] with complaints of generalized weakness and inability to care for self at home. Workup in the emergency room included a CBC which showed an elevated white blood cell count at 23.6, hemoglobin was low at 9.3, there is an elevation of the patient's creatinine at 1.39 and BUN was 34. Patient's potassium was low at 2.7 and urinalysis indicated the patient had a urinary tra ct infection. Chest x-ray showed a partial mild early infiltrate in right upper lobe and right middle lobes. Patient was admitted to [place] [address] for pneumonia and urinary tract infection as well as acute debility, patient received IV antibiotics and was seen by PT and OT, initially it was felt that the patient would need to go to a detention facility, after a time. However patient desired to go home due to the fact a detention facility could not be located that would except the patient. On 12/15/2023, patient was seen and examined: On examination she appeared in good health and spirits, she does not appear to be in any distress. Vital signs as documented. Skin warm and dry and w ithout overt rashes. Neck without JVD, thyroid appears normal, trachea is midline, neck is supple. Lungs clear, normal air movement was noted. Heart exam notable for regular rhythm, normal sounds and absence of murmurs, rubs or gallops. Abdomen unremarkable and without evidence of organomegaly, masses, or abdominal aortic enlargement, bowel sounds are present in all 4 quadrants, no abdominal tenderness was noted. Extremities nonedematous, no cyanosis was noted, no clubbing was noted. Neuro: Cranial nerves II through XII are grossly intact, no focal motor deficits were noted, sensation to light touch and pinprick is intact, motor exam 5/5 throughout. Psych: Patient is alert and oriented x3, she does not appear anxious or depressed, she does not appear agitated. Patient appears stable for discharge home on 12/15/2023. Weight / BMI Weight Weight: 55.7 kg Body Mass Index (BMI) 20.9 ABG / Lab / Microbiology Data 12/14/23 06:19 12/14/23 06:19 Laboratory: Laboratory Results - last 24 hr 12/13/23 06:20: Diff Path Review Reviewed, Hepatitis A IgM Ab Negative, Hep Bs Antigen Negative, Hep B Core IgM Ab Negative, Hepatitis C Ab (EIA) Non Reactive, Hep C Ab Comment Comment Microbiology: Microbiology 12/09/23 11:55 Blood Culture (Wb) - Anticubital Left Blood Culture - Final No growth in 5 days. 12/09/23 11:15 Blood Culture (Wb) - Anticubital Left Blood Culture - Final No growth in 5 days. 12/11/23 03:00 Interface Orders Enteric Bacteriology - Final 12/11/23 03:00 Stool Clostridioides difficile (PCR) - Final 12/11/23 03:00 Stool Stool Occult Blood (STEW) - Final 12/09/23 11:09 Urine, Clean Catch Urine Culture - Final Presumptive E. coli 12/11/23 03:00 Urine, Clean Catch Streptococcus pneumoniae Antigen (M - Final 12/11/23 03:00 Urine, Clean Catch Legionella Antigen - Final 12/09/23 15:13 Mucosa - Nose Respiratory Panel (PCR) - Final 12/09/23 10:48 Mucosa - Nose SARS-CoV-2, Influenza & RSV (PCR) - Final D/C Instructions Discharge Diet: No restrictions Weight Bearing Status: Full weight bearing Meaningful Use Info Meaningful Use Diagnoses (Choose all that apply): None applicable Discharge Plan Admission Admit Date/Time: 12/09/23 12:51 Primary Reason for Your Visit: pneumonia Attending Provider: Cristiano Bruce Primary Care Provider: Lydia Flores NP Consulting Providers: Manjula Hopkins Discharge Orders/Prescriptions Prescriptions: Continued alprazolam 0.5 mg tablet 0.5 mg PO BID escitalopram oxalate 20 mg tablet 20 mg PO DAILY gabapentin 600 mg tablet 600 mg PO TID mirtazapine 15 mg tablet 15 mg PO QHS ondansetron HCl 4 mg tablet 4 mg PO Q8H PRN (Reason: nausea and vomiting) ropinirole 1 mg tablet 1 mg PO QHS rosuvastatin [Crestor] 5 mg tablet 5 mg PO DAILY zaleplon 5 mg capsule 5 mg PO QHS PRN (Reason: sleep) Rx Instructions: must avoid high-fat meal/food immediately before taking dose colestipol [Colestid] 1 gram tablet 1 g PO BID methocarbamol 750 mg tablet 750 mg PO TID pantoprazole [Protonix] 40 mg tablet,delayed release (DR/EC) 40 mg PO BID famotidine [Pepcid] 40 mg tablet 40 mg PO BID acetaminophen 500 mg tablet 500 mg PO Q8H PRN (Reason: pain) albuterol sulfate 90 mcg/actuation HFA aerosol inhaler 2 puff inhalation Q6H PRN (Reason: shortness of breath or wheezing) cholecalciferol (vitamin D3) 1 cap PO DAILY Referrals / Follow Up: Lydia Flores BEDSPREAD CUTTER HAND, BEDSPREAD CUTTER HAND-C [Primary Care Provider] - Within 2 Weeks (He will need a renal profile checked due to your low potassium in the hospital) Disposition Disposition (needs filled in before D/C Order can be placed): Home, Self Care Charges/Coding Visit Charges Inpatient E&M: 50538 Disch Hosp >30min
[2023-12-15 14:10] VITALS: BP 109/76; PULSE 79; RESP 18; TEMP 36.6; O2SAT 100
--- NOTE | 2023-12-16 14:39 | CASEMGMT ---
[facility] called this RN CM at this time and states they might be able to accept the pt. Pt was DC yesterday and is home now. This RN CM called the pt at this time to see if the pt would like [facility] now. No answer, voice message left with call back number.
--- NOTE | 2023-12-18 13:39 | CASEMGMT ---
Pt returns this RN CM TC at this time and states that she is doing fine and does not need HHC at this time.
== END 2023-12-15 14:50 | disposition home or self-care (01) | DRG 139 ==
LOC: ED 10:52 → MS3 13:03
PROVIDERS: Admitting Provider Family Medicine; Emergency Provider Emergency Medicine; PCP Nurse Practitioner Family; Visit Provider Internal Medicine
DX: J18.9 Pneumonia, unspecified organism (principal); E87.1 Hypo-osmolality and hyponatremia; J44.0 Chronic obstructive pulmonary disease with (acute) lower respiratory infection; D64.9 Anemia, unspecified; F32.A Depression, unspecified; G25.81 Restless legs syndrome; E78.5 Hyperlipidemia, unspecified; K21.9 Gastro-esophageal reflux disease without esophagitis; E87.6 Hypokalemia; F17.210 Nicotine dependence, cigarettes, uncomplicated; E86.1 Hypovolemia; F41.9 Anxiety disorder, unspecified; G62.9 Polyneuropathy, unspecified; N39.0 Urinary tract infection, site not specified; R62.7 Adult failure to thrive; B96.20 Unspecified Escherichia coli [E. coli] as the cause of diseases classified elsewhere; G89.29 Other chronic pain; R53.81 Other malaise; Z68.21 Body mass index [BMI] 21.0-21.9, adult; Z79.899 Other long term (current) drug therapy
CPT/HCPCS: 36415; 71045; 80048; 80053; 80074; 81001; 82274; 82607; 82728; 82746; 83540; 83550; 83605; 83735; 84100; 84484; 85025; 86706; 86803; 87040; 87086; 87088; 87186; 87340; 87449; 87493; 87506; 87631; 87633; 87641; 93005; 94640; 94668; 97110; 97116; 97162; 97166; 97530; 97535; 99285; J7030; A4216; J3420

== ENCOUNTER → 2024-03-16 | Outpatient (CLI) | payer MEDICAID, SELFPAY ==
--- NOTE | 2024-03-16 09:48 | RAD_ITS ---
ACR Level 3 findings have been noted. An addendum which confirms receipt of the report will follow. INDICATION: PAIN EXAMINATION/TECHNIQUE: X-RAY - XR Abdomen 1 View COMPARISON: None FINDINGS: BOWEL GAS PATTERN: Large colonic stool burden from cecum to rectum with mild gaseous distention of small bowel in left upper abdomen. FREE AIR: Not well assessed on a supine view. ORGANOMEGALY: Not seen. CALCIFICATIONS: Right upper quadrant surgical clips. Left pelvic surgical clips. Left pelvic phleboliths. Scattered peripheral atherosclerosis. LOWER CHEST: No acute pathology. BONES AND SOFT TISSUES:Lumbar fixation hardware and disc spacers RAD/Abdomen Single View IMPRESSION: Large colonic stool burden as can be seen with constipation. There is mild dilatation of small bowel in left upper abdomen which is nonspecific and may be secondary to constipation or localized inflammation and ileus. Correlate for clinical pancreatitis or evidence of obstruction. CT could further evaluate as clinically indicated. Electronically Signed: Douglas An MD at 23:11 EDT ,
== END | disposition home or self-care (01) ==
PROVIDERS: PCP Nurse Practitioner Family
DX: K59.09 Other constipation (principal)
CPT/HCPCS: 74018

== ENCOUNTER → 2024-03-17 | Outpatient (CLI) | payer MEDICAID, SELFPAY ==
--- NOTE | 2024-03-17 09:50 | RAD_ITS ---
STUDY: X-RAY - ESOPHAGUS (BARIUM SWALLOW) WITH FLUOROSCOPY REASON FOR EXAM: Female, 64 years old. DYSPHAGIA choking episodes. History of prior esophageal dilatation. TECHNIQUE: 20 view(s) of the esophagus were obtained following swallowing of barium. FLUOROSCOPY TIME (if supplied): (52 seconds) minutes/seconds. 5.27 mGy. COMPARISON: None. FINDINGS: There is no demonstrated esophageal foreign body. There is no demonstrated stricture or mucosal abnormality. Normal gastroesophageal junction, without a demonstrated hiatal hernia. The patient ingested a 12 mm tablet of barium. The tablet is trapped at the gastroesophageal junction. Normal visualized aortic arch and descending thoracic aorta. Normal visualized pulmonary parenchyma. There are diffuse degenerative changes of the visualized thoracic spine. RAD/Esophagus Dual Contrast IMPRESSION: The ingested 12 mm tablet of barium is trapped at the gastroesophageal junction. Electronically Signed: Norbert Keys MD at 10:13 EDT ,
== END | disposition home or self-care (01) ==
PROVIDERS: PCP Nurse Practitioner Family
DX: K21.9 Gastro-esophageal reflux disease without esophagitis (principal); R13.10 Dysphagia, unspecified
CPT/HCPCS: 74221

== ENCOUNTER 2024-03-25 09:18 | Emergency (ER) | payer MEDICAID, SELFPAY ==
[2024-03-25 09:18] VITALS: BP 127/66; PULSE 99; RESP 14; TEMP 36.3; O2SAT 97; BMI 21.8
--- NOTE | 2024-03-25 09:27 | EX.ED.DYSGE1 ---
HPI History of Present Illness Chief Complaint: Other, Pain/Inj Informant: patient Narrative Narrative: Several days of a painful swollen upper lip. She states it started like a cold sore or a pimple and has gotten worse. Very sore and tender now. No systemic symptoms, but in the past 5 or 6 days she has also had a tender swollen area in her right armpit, however even though it did not drain it is improved and not hurting anymore. [facility] Medical History TYRA (acute kidney injury) COPD (chronic obstructive pulmonary disease) Chronic back pain Tobacco use GERD (gastroesophageal reflux disease) Anxiety and depression RLS (restless legs syndrome) HLD (hyperlipidemia) Home Medications ?Medication ?Instructions ?Recorded ?Last Taken ?Type acetaminophen 500 mg tablet 500 mg PO Q8H PRN pain 12/09/23 12/07/23 History albuterol sulfate 90 mcg/actuation 2 puff inhalation Q6H PRN 12/09/23 12/08/23 History aerosol inhaler shortness of breath or wheezing alprazolam 0.5 mg tablet 0.5 mg PO BID 12/09/23 12/09/23 History cholecalciferol (vitamin D3) 1 cap PO DAILY 12/09/23 12/09/23 History colestipol 1 gram tablet (Colestid) 1 g PO BID 12/09/23 12/09/23 History escitalopram oxalate 20 mg tablet 20 mg PO DAILY 12/09/23 12/08/23 History famotidine 40 mg tablet (Pepcid) 40 mg PO BID 12/09/23 12/08/23 History gabapentin 600 mg tablet 600 mg PO TID 12/09/23 12/09/23 History methocarbamol 750 mg tablet 750 mg PO TID 12/09/23 12/08/23 History mirtazapine 15 mg tablet 15 mg PO QHS 12/09/23 12/08/23 History ondansetron HCl 4 mg tablet 4 mg PO Q8H PRN nausea and vomiting 12/09/23 Unknown History pantoprazole 40 mg tablet,delayed 40 mg PO BID 12/09/23 12/09/23 History release (Protonix) ropinirole 1 mg tablet 1 mg PO QHS 12/09/23 12/08/23 History rosuvastatin 5 mg tablet (Crestor) 5 mg PO DAILY 12/09/23 12/08/23 History zaleplon 5 mg capsule 5 mg PO QHS PRN sleep 12/09/23 12/08/23 History doxycycline monohydrate 100 mg 100 mg PO BID #20 CAPSULES 03/25/24 Unknown Rx capsule tramadol 50 mg tablet 50 mg PO Q6H 1 day #4 tabs 03/25/24 Unknown Rx Allergy/AdvReac Type Severity Reaction Status Date / Time amoxicillin Allergy Mild Diarrhea Verified 12/09/23 10:37 dexlansoprazole Allergy Mild Diarrhea Verified 12/09/23 10:37 Influenza Virus Vaccines Allergy Mild Vomiting Verified 12/09/23 10:37 morphine Allergy Mild Vomiting Verified 12/09/23 10:38 sulfamethoxazole (From Allergy Mild Rash Verified 12/09/23 10:38 Bactrim) trimethoprim (From Bactrim) Allergy Mild Rash Verified 12/09/23 10:38 hydroxychloroquine Allergy Unknown NEEDS Verified 12/09/23 10:37 FOLLOW-UP metronidazole AdvReac Mild BLOATING Verified 12/09/23 10:37 Family History (Updated 12/09/23 @ 13:[address] Manjula Hopkins MD) Mother Diabetes Father Heart disease Hypertension CAD (coronary artery disease) Myocardial infarction Surgical History (Updated 12/09/23 @ 13:[address] Manjula Hopkins MD) S/P total abdominal hysterectomy Hx of cholecystectomy History of arthroscopy of right shoulder H/O removal of cyst History of back surgery Social History household members: none Smoking Status: Current every day smoker tobacco type: cigarettes alcohol intake: never substance use type: does not use ROS ROS ED Constitutional Constitutional ED: Denies chills or fever(s) ENT ENT ED: Reports other Details: Upper lip pain no other facial pain or dental discomfort intraorally Integumentary Reports abscess Neurologic Neurologic: Denies headache(s), paresthesias or weakness EXAM Physical Exam Const Vital Signs: 03/25/24 09:18 03/25/24 09:38 Temperature 97.3 F L Temperature Source Temporal Pulse Rate 99 Respiratory Rate 14 Respiratory Effort Normal Non-Labored Respiratory Pattern Normal Blood Pressure 127/66 H Blood Pressure Mean 86 Pulse Ox 97 Oxygen Delivery Method Room Air Positive well nourished and well developed General Appearance ED: well developed and NAD HEENT HEENT Narrative: Upper lip abscess, erythema externally, centered around what appears to be a scabbed pustule, there is no spontaneous drainage and it is very tender with some induration externally. Tender intraorally as well. No lesions on the mucosa. Gingiva edentulous and normal otherwise. Eyes PERRL and EOMs intact bilaterally Lymph Lymphatic Narrative: Right axilla: No lymphadenopathy, there is a single 0.25 cm cutaneous exophytic erythematous lesion consistent with a resolving abscess. No tenderness or fluctuance right now. Extremity normal to inspection Neuro oriented x3, CN's II-XII intact bilaterally, no sensory deficits noted and gait normal Motor Exam: strength 5/5 throughout Psych mental status grossly normal Skin no wounds Skin Narrative: No rashes, lesions as described above right axilla and lip MDM MDM MDM Narrative Medical decision making narrative: This is consistent with an abscess of the upper lip, I think incision and drainage is warranted. I discussed this with her, she verbally consents and understands the risk basically of pain, scarring although incision will be made vertically along with skin wrinkles/lines of Gutierrez in this area, as well as the possibility of there will be no pus to express. This was done, using less than 1 cc of plain 1% lidocaine and there was pus expressed. Given the cosmetics of the area I did not do any packing. She is allergic to Bactrim, so in order to cover MRSA without using that I am going to put her on doxycycline for 10 days and advised that she follow-up. She is requesting a prescription for a couple of Ultram which is fine. Procedures Other Procedures Procedure(s): Simple abscess upper lip incision and drainage: Prepped with chlorhexidine, locally anesthetized with less than 0.5 mL of plain 1% lidocaine, incised over the scabbed pustule with a #11 blade, small stab incision was made vertically, well above the vermilion border. Pus was expressed, relatively small amount. Tolerated well no complications. Discharge Plan Triage Chief Complaint: Other, Pain/Inj ED Provider: Lorenzo Pace Dx/Rx/DC Orders Clinical Impression: Abscess of face Instructions: ED Abscess Incision And Drainage Prescriptions: New tramadol 50 mg tablet 50 mg PO Q6H 1 Days Qty: 4 0RF doxycycline monohydrate 100 mg capsule 100 mg PO BID Qty: 20 0RF No Action alprazolam 0.5 mg tablet 0.5 mg PO BID escitalopram oxalate 20 mg tablet 20 mg PO DAILY gabapentin 600 mg tablet 600 mg PO TID mirtazapine 15 mg tablet 15 mg PO QHS ondansetron HCl 4 mg tablet 4 mg PO Q8H PRN (Reason: nausea and vomiting) ropinirole 1 mg tablet 1 mg PO QHS rosuvastatin [Crestor] 5 mg tablet 5 mg PO DAILY zaleplon 5 mg capsule 5 mg PO QHS PRN (Reason: sleep) Rx Instructions: must avoid high-fat meal/food immediately before taking dose colestipol [Colestid] 1 gram tablet 1 g PO BID methocarbamol 750 mg tablet 750 mg PO TID pantoprazole [Protonix] 40 mg tablet,delayed release (DR/EC) 40 mg PO BID famotidine [Pepcid] 40 mg tablet 40 mg PO BID acetaminophen 500 mg tablet 500 mg PO Q8H PRN (Reason: pain) albuterol sulfate 90 mcg/actuation HFA aerosol inhaler 2 puff inhalation Q6H PRN (Reason: shortness of breath or wheezing) cholecalciferol (vitamin D3) 1 cap PO DAILY Primary Care Provider: Lydia Flores Referrals: Lydia Flores, OPERATOR PREFINISH-C [Primary Care Provider] - 1 Week if not improving Print Language: Sami
[2024-03-25] MEDS: Lidocaine 1% (20 ml mdv) 20 ML Vial INFILT (09:57)
[2024-03-25 10:02] VITALS: BP 131/76; PULSE 72; RESP 15; TEMP 36.6; O2SAT 96
== END 2024-03-25 10:05 | disposition home or self-care (01) ==
LOC: ED 09:48
PROVIDERS: Emergency Provider Emergency Medicine; PCP Nurse Practitioner Family; Visit Provider Emergency Medicine
DX: K12.2 Cellulitis and abscess of mouth (principal); F17.210 Nicotine dependence, cigarettes, uncomplicated
CPT/HCPCS: 10060; 99282

== ENCOUNTER → 2024-04-04 | Outpatient (CLI) | payer MEDICAID, SELFPAY | END | disposition home or self-care (01) | LOC: LABSPEC 15:32 | PROVIDERS: PCP Nurse Practitioner Family; Referring Provider Otolaryngology Otolaryngology/Facial Plastic Surgery; Visit Provider Otolaryngology Otolaryngology/Facial Plastic Surgery | DX: J32.9 Chronic sinusitis, unspecified (principal) | CPT/HCPCS: 87070; 87077; 87186; 87205 ==

== ENCOUNTER → 2024-05-09 | Outpatient (CLI) | payer MEDICAID, SELFPAY ==
[2024-05-09 14:14] LABS: Vitamin B12 216 pg/mL (211-911)
== END | disposition home or self-care (01) ==
LOC: LAB 10:18
PROVIDERS: PCP Nurse Practitioner Family; Referring Provider Nurse Practitioner Family; Visit Provider Nurse Practitioner Family
DX: D75.89 Other specified diseases of blood and blood-forming organs (principal)
CPT/HCPCS: 36415; 82607; 82746

== ENCOUNTER → 2025-03-14 | Outpatient (CLI) | payer MEDICAID, MEDICARE, SELFPAY ==
[2025-03-14 13:04] LABS: Hematocrit 37.6 % (37-47); Hemoglobin 12.4 g/dL (12.0-15.0); Mean Corpuscular Hgb 35.3 pg (27.0-32.0); Mean Corpuscular Volume 107.1 fL (81-99); Mean Platelet Vol. 8.4 fl (6.2-12.0); Platelet Count 451 K/mm3 (150-450); RBC Distribution Width CV 13.6 % (11.6-14.6); RBC Distribution Width SD 54.5 fl (35.1-43.9); Red Blood Count 3.51 M/mm3 (4.2-5.4); White Blood Count 7.5 K/mm3 (4.4-11.0)
[2025-03-14 13:26] LABS: ALB/GLOB Ratio 1.5 RATIO (0.9-2.4); AST(SGOT) 16 U/L (<=31); Alanine Aminotransfer ALT/SGPT 10 U/L (<=34); Alkaline Phosphatase 70 U/L (35-104); Anion Gap 11 (5-15); BUN 7 mg/dL (4-19); BUN/Creat Ratio 10.6 RATIO (10-20); Calcium,Total 9.4 mg/dL (7.6-11.0); Carbon Dioxide 18.5 mmol/L (21.0-32.0); Chloride 107 mmol/L (98-108); Creatinine, Serum 0.66 mg/dL (0.70-1.20); EST Glomerular Filtration Rate 97 (>60); Globulin 2.8 g/dL (2.2-4.2); Glucose 77 mg/dL (70-99); Potassium 4.3 mmol/L (3.3-5.1); Protein, Total 6.8 g/dL (5.9-8.4); Sodium Level 137 mmol/L (133-145); Total Bilirubin 0.17 mg/dL (0.00-1.30)
== END | disposition home or self-care (01) ==
LOC: VSLAB 09:36
PROVIDERS: PCP Nurse Practitioner Family; Visit Provider Nurse Practitioner Family
DX: K21.9 Gastro-esophageal reflux disease without esophagitis (principal)
CPT/HCPCS: 36415; 80053; 85027

== ENCOUNTER 2025-03-24 10:37 | Outpatient (CLI) | payer MEDICARE, MEDICAID, SELFPAY ==
[2025-03-24 11:29] LABS: Absolute Lymphocyte Count 2.27 X10^3/uL (0.83-4.51); Absolute Neutrophil Count 3.4 X10^3/uL (2.0-7.7); Basophil# 0.04 X10^3/uL; Basophil% 0.6 % (0-1); Eosinophil# 0.21 X10^3/uL; Eosinophils% 3.3 % (0-5); Hematocrit 36.9 % (37-47); Hemoglobin 12.3 g/dL (12.0-15.0); Lymphocyte # 2.27 X10^3/ul (0.83-4.51); Lymphocyte % 35.6 % (19-41); Mean Corp Hgb Conc 33.3 g/dL (32-36); Mean Corpuscular Hgb 35.1 pg (27.0-32.0); Mean Corpuscular Volume 105.4 fL (81-99); Mean Platelet Vol. 8.9 fl (6.2-12.0); Monocyte# 0.48 X10^3/uL; Monocyte% 7.5 % (0-10); NRBC Flagged by Analyzer 0 % (0-5); Neutrophil # 3.35 X10^3/uL (2.7-7.7); Neutrophil % 52.7 % (47-70); Platelet Count 377 K/mm3 (150-450); RBC Distribution Width CV 13.5 % (11.6-14.6); RBC Distribution Width SD 51.9 fl (35.1-43.9); White Blood Count 6.4 K/mm3 (4.4-11.0)
[2025-03-24 12:41] LABS: ALB/GLOB Ratio 1.5 RATIO (0.9-2.4); AST(SGOT) 20 U/L (<=31); Alanine Aminotransfer ALT/SGPT 13 U/L (<=34); Albumin, Serum 4.2 g/dL (3.4-4.8); Alkaline Phosphatase 93 U/L (35-104); Anion Gap 11 (5-15); BUN 11 mg/dL (4-19); BUN/Creat Ratio 13.7 RATIO (10-20); Calcium,Total 9.1 mg/dL (7.6-11.0); Carbon Dioxide 17.9 mmol/L (21.0-32.0); Chloride 110 mmol/L (98-108); Creatinine, Serum 0.81 mg/dL (0.70-1.20); EST Glomerular Filtration Rate 81 (>60); Globulin 2.7 g/dL (2.2-4.2); Glucose 94 mg/dL (70-99); Potassium 3.8 mmol/L (3.3-5.1); Protein, Total 6.9 g/dL (5.9-8.4); Sodium Level 139 mmol/L (133-145); Total Bilirubin 0.41 mg/dL (0.00-1.30)
[2025-03-24 13:03] LABS: CRP 3.19 mg/L (0.0-3.0); LDH 176 U/L (84-246)
[2025-03-29 06:07] LABS: Cytoplasmic Ab (C-ANCA) <1:20 titer (Neg:<1:20); Endomysial Antibody IgA Negative (Negative); Immunoglobulin A < 5 mg/dL (87-352); Immunoglobulin E < 2 IU/mL (6-495); Immunoglobulin G 841 mg/dL (586-1602); Immunoglobulin M 41 mg/dL (26-217); Perinuclear Ab (P-ANCA) <1:20 titer (Neg:<1:20); t-Transglutaminase IgA <2 U/mL (0-3)
[2025-03-29 09:08] LABS: Anti-Centromere B Ab <0.2 AI (0.0-0.9); Anti-Chromatin <0.2 AI (0.0-0.9); Anti-Jo <0.2 AI (0.0-0.9); Anti-Scleroderma-70 AB <0.2 AI (0.0-0.9); Anti-dsDNA Ab <1 IU/mL (0-9); Beef <0.10 kU/L (Class 0); Chocolate <0.10 kU/L (Class 0); Codfish <0.10 kU/L (Class 0); Corn <0.10 kU/L (Class 0); Egg, Whole <0.10 kU/L (Class 0); Milk (Cow) <0.10 kU/L (Class 0); Mussels <0.10 kU/L (Class 0); Peanut <0.10 kU/L (Class 0); Pork <0.10 kU/L (Class 0); RNP Ab <0.2 AI (0.0-0.9); SJOGREN'S Anti-SS-A test < 0.2 AI (0.0-0.9); SJOGREN'S Anti-SS-B test < 0.2 AI (0.0-0.9); Salmon <0.10 kU/L (Class 0); Shrimp <0.10 kU/L (Class 0); Smith Ab <0.2 AI (0.0-0.9); Soybean <0.10 kU/L (Class 0); Tuna <0.10 kU/L (Class 0); Wheat <0.10 kU/L (Class 0)
== END 2025-03-24 23:59 | disposition home or self-care (01) ==
PROVIDERS: PCP Nurse Practitioner Family
DX: R19.7 Diarrhea, unspecified (principal); R10.9 Unspecified abdominal pain; R63.4 Abnormal weight loss; R12 Heartburn; K21.9 Gastro-esophageal reflux disease without esophagitis; R13.10 Dysphagia, unspecified
CPT/HCPCS: 36415; 80053; 82784; 82785; 83516; 83615; 84443; 85025; 86003; 86005; 86037; 86140; 86225; 86235; 86255

== ENCOUNTER → 2025-03-31 | Outpatient (CLI) | payer MEDICARE, MEDICAID, SELFPAY ==
[2025-04-05 08:08] LABS: Calprotectin, Stool 25 ug/g (0-120)
== END | disposition home or self-care (01) ==
PROVIDERS: PCP Nurse Practitioner Family
DX: R19.7 Diarrhea, unspecified (principal); R10.9 Unspecified abdominal pain; R63.4 Abnormal weight loss; R12 Heartburn; K21.9 Gastro-esophageal reflux disease without esophagitis; R13.10 Dysphagia, unspecified
CPT/HCPCS: 82653; 83516; 83630; 83993; 86036; 86671; 87329; 87493

== ENCOUNTER → 2025-04-25 | Outpatient (CLI) | payer MEDICARE, MEDICAID, SELFPAY ==
--- NOTE | 2025-04-25 10:25 | NEURO ---
NCS and/or EMG Patient Report Ordering Doctor: Jerrell Huffman DATE OF SERVICE: 04/25/25 Clinical Summary: 65 year old female patient with symptoms of pain that radiates from the shoulder to the hands in both upper extremities. Nerve Conduction Studies Summary: Nerve conduction studies performed in the bilateral upper extremities were within normal ranges. Needle Examination Summary: Needle examination of select muscles of the bilateral upper extremities demonstrated a higher proportion of motor unit action potentials with reduced recruitment, increased amplitude, increased duration, and polyphasia in the right biceps and flexor carpi radialis muscles. Impression: This is an abnormal study. There is electrodiagnostic evidence of a chronic, right C5/C6 radiculopathy. There is no electrodiagnostic evidence of a right median mononeuropathy at the wrist (carpal tunnel syndrome) or ulnar neuropathy. Multi Select Codes Neurology Neurology Interp Codes: 68431-82 Musc test done w/n test comp (interp) (2) and 35429-24 Nrv cndj test 13/> studies (interp)
== END | disposition home or self-care (01) ==
LOC: PSN 08:17
PROVIDERS: PCP Nurse Practitioner Family; Referring Provider Orthopaedic Surgery Sports Medicine; Visit Provider Orthopaedic Surgery Sports Medicine
DX: G56.03 Carpal tunnel syndrome, bilateral upper limbs (principal)
CPT/HCPCS: 95886; 95913

== ENCOUNTER → 2025-04-28 | Outpatient (CLI) | payer MEDICARE, MEDICAID, SELFPAY ==
--- NOTE | 2025-04-28 08:46 | CT_ITS ---
PROCEDURE: SPINE LUMBAR WITHOUT CONTRAST 04/28/2025 REASON FOR EXAM: PAIN TECHNIQUE: SPINE LUMBAR WITHOUT CONTRAST Coronal and Sagittal reconstruction series were provided. One or more dose reduction techniques were used (e.g., Automated exposure control, adjustment of the mA and/or kV according to patient size, use of iterative reconstruction technique COMPARISON: Lumbar spine radiographs dated 05/06/2024 RADIATION DOSE SUMMARY: CTDlvol: 11.8 mGy DLP: 354 mGycm FINDINGS: Postoperative changes from posterior fusion and discectomy from L2 through L5, and laminectomy at L3 and L4. No hardware fracture or significant perihardware lucency. There is anterolisthesis of L4 on L5 measuring 6 mm, unchanged. Vertebral body heights are maintained. L1-2: No significant osseous neural foraminal or spinal canal narrowing. L2-3: Subtle nodular focus in the right neural foramen measuring 7 mm (sagittal image 30). No significant osseous neural foraminal or spinal canal narrowing. L3-4: Mild osseous neural foraminal narrowing bilaterally. No significant osseous spinal canal narrowing. L4-5: There is moderate osseous neural foraminal narrowing bilaterally. No significant osseous spinal canal narrowing. L5-S1: No significant osseous neural foraminal or spinal canal narrowing. Sacrum: No evident fracture. Mild bilateral sacroiliac joint osteoarthritis. Aortic atherosclerosis. Prior cholecystectomy. CT/Spine Lumbar without Contrast IMPRESSION: 1. Postoperative changes of the lumbar spine, without evidence of hardware com plication. 2. Subtle nodular opacity at the right L2-3 neural foramen measuring 7 mm, lik stephany the exiting nerve root accentuated by streak artifact. Additional considerations include disc protrusion or neoplasm (such as schwannoma). 3. Multilevel degenerative changes of the lumbar spine, with at least moderate osseous neural foraminal narrowing bilaterally at L4-5. No significant osseous spinal canal narrowing at any level. Reading Location: [facility]
== END | disposition home or self-care (01) ==
LOC: CT 08:43
PROVIDERS: PCP Nurse Practitioner Family; Referring Provider Orthopaedic Surgery Orthopaedic Surgery of the Spine; Visit Provider Orthopaedic Surgery Orthopaedic Surgery of the Spine
DX: T84.498A Other mechanical complication of other internal orthopedic devices, implants and grafts, initial encounter (principal)
CPT/HCPCS: 72131

== ENCOUNTER → 2025-05-26 | Outpatient (CLI) | payer MEDICARE, MEDICAID, SELFPAY ==
--- NOTE | 2025-05-26 09:38 | CT_ITS ---
PROCEDURE: ABDOMEN/PELVIS WITH CONTRAST 05/26/2025 REASON FOR EXAM: ABD PAIN, DIARRHEA TECHNIQUE: ABDOMEN/PELVIS WITH CONTRAST Coronal and Sagittal reconstruction series were provided. CONTRAST: Isovue 300 VOLUME: 74 mL One or more dose reduction techniques were used (e.g., Automated exposure control, adjustment of the mA and/or kV according to patient size, use of iterative reconstruction technique. RADIATION DOSE SUMMARY: CTDlvol: 19 mGy DLP: 617 mGycm COMPARISON: No FINDINGS: Clear lung bases. Normal heart size. Esophageal reflux. Status post cholecystectomy. Normal liver, pancreas,, adrenal glands, kidneys. No hydronephrosis. Normal bladder. Status post hysterectomy. No retroperitoneal or pelvic adenopathy. No free air. Patient may be status post fundoplication, with some unwrapping of the fundoplication. Stomach is nondistended. Multiple mid abdominal small bowel loops are upper limits of normal for size without specific evidence of obstruction. Normal appendix. There is relative lack of haustration in the distal half of the large bowel, with moderate stool. Correlate for laxative abuse or ulcerative colitis. Lumbar spine scoliosis, degeneration, prior surgery. Small right-sided periumbilical fat hernia. Small epigastric midline fat hernia. CT/Abdomen/Pelvis WITH Contrast IMPRESSION: Possible ulcerative colitis or laxative abuse. Advise correlation. Reading Location: [place] [id number]
== END | disposition home or self-care (01) ==
PROVIDERS: PCP Nurse Practitioner Family
DX: R19.7 Diarrhea, unspecified (principal); R10.9 Unspecified abdominal pain; R63.4 Abnormal weight loss; R12 Heartburn; K21.9 Gastro-esophageal reflux disease without esophagitis; R13.10 Dysphagia, unspecified
CPT/HCPCS: 74177; Q9967

== ENCOUNTER 2025-06-08 11:32 | Emergency (ER) | payer MEDICARE, MEDICAID, SELFPAY ==
[2025-06-08 11:32] VITALS: BP 150/78; PULSE 81; RESP 14; TEMP 35.8; O2SAT 98; BMI 23.6
--- NOTE | 2025-06-08 11:49 | EDS_ITS ---
HPI <ROBYN Brooks - Last Filed: 06/08/25 12:13> History of Present Illness Chief Complaint: Bite Narrative Narrative: 65-year-old female noticed a red painful bump on her left forearm 3 days ago. It started gradually bigger. She is concerned she may have been bit by a spider. She denies fever chills nausea or vomiting. She is not diabetic or immunocompromised. PFSH <ROBYN Brooks - Last Filed: 06/08/25 12:13> [facility] Medical History Cervical radiculopathy, chronic Low back pain Rheumatoid arthritis Fibromyalgia Bilateral carpal tunnel syndrome Right shoulder pain TYRA (acute kidney injury) COPD (chronic obstructive pulmonary disease) Chronic back pain Tobacco use GERD (gastroesophageal reflux disease) Anxiety and depression RLS (restless legs syndrome) HLD (hyperlipidemia) Home Medications ?Medication ?Instructions ?Recorded ?Last Taken ?Type acetaminophen 500 mg tablet 500 mg PO Q8H PRN pain 05/2512/07/23 History albuterol sulfate 90 mcg/actuation 2 puff inhalation Q 6H PRN 12/09/23 12/08/23 History aerosol inhaler shortness of breath or wheez ing alprazolam 0.5 mg tablet 0.5 mg PO BID 12/09/2312/09 History escitalopram oxalate 20 mg tablet 20 mg PO DAILY 12/0912/08/23 History methocarbamol 750 mg tablet 750 mg PO TID 12/09/2304/25 History mirtazapine 15 mg tablet 15 mg PO QHS 12/09/23 History ondansetron HCl 4 mg tablet 4 mg PO Q8H PRN nausea and vomiting 12/09/23 Unknown History ropinirole 1 mg tablet 1 mg PO QHS 12/09/23 4 History rosuvastatin 5 mg tablet (Crestor) 5 mg PO DAILY 12/0912/08/23 History gabapentin 600 mg tablet 800 mg PO TID 10/21/24 Unkno wn History zaleplon 5 mg capsule 5 mg PO QHS 03/23/25 Unknown History famotidine 40 mg tablet (Pepcid) 40 mg PO BID #60 tabs 03/24/25 Unknown Rx cephalexin 500 mg capsule 500 mg PO Q6 7 days #28 CAPS ULES 06/08/25 Unknown Rx Allergy/AdvReac Type Severity Reaction Status Date / Time amoxicillin Allergy Mild Diarrhea Verified 06/08/25 11:32 dexlansoprazole Allergy Mild Diarrhea Verified 06/08/25 11:32 Influenza Virus Vaccines Allergy Mild Vomiting Verified 06/08/25 11:32 morphine Allergy Mild Vomiting Verified 06/08/25 11:32 sulfamethoxazole (From Allergy Mild Rash Verified 06/08/25 11:32 Bactrim) trimethoprim (From Bactrim) Allergy Mild Rash Verified 06/08/25 11:32 hydroxychloroquine Allergy Unknown NEEDS Verified 06/08/25 11:32 FOLLOW-UP metronidazole AdvReac Mild BLOATING Verified 06/08/25 11:32 Family History Mother Diabetes Father Heart disease Hypertension CAD (coronary artery disease) Myocardial infarction Surgical History S/P total abdominal hysterectomy Hx of cholecystectomy History of arthroscopy of right shoulder H/O removal of cyst History of back surgery Social History household members: none Smoking Status: Current every day smoker tobacco type: cigarettes alcohol intake: never substance use type: does not use ROS <ROBYN Brooks - Last Filed: 06/08/25 12:13> ROS ED ROS Narrative Constitutional: Negative for fever, chills, malaise. GI: Negative for nausea, vomiting. Skin: Negative for wound. EXAM <ROBYN Brooks - Last Filed: 06/08/25 12:13> Physical Exam Narrative Exam Narrative: CONST: Patient sitting in no acute distress. EYES: Normal inspection. NECK: Normal inspection. RESP: No respiratory distress, CTAB. CVS: Regular rate and rhythm, no murmur, no gallop. SKIN: Color normal, no rash, warm, dry, intact. EXTREMITIES: Normal appearance, full range of motion of the left shoulder elbow wrist and hand. 5/5 strength, normal sensation, 2+ radial pulse. Mid forearm has a firm nodule with overlying erythema, warmth and tenderness. No lymphangit ic streaking. NEURO: Alert and answering questions appropriately. PSYCH: Normal affect. Const Vital Signs: 06/08/25 11:32 06/08/25 12:10 Temperature 96.5 F L 98.3 F Temperature Source Temporal Pulse Rate 81 77 Respiratory Rate 14 18 Blood Pressure 150/78 H 145/57 H Blood Pressure Mean 102 86 Pulse Ox 98 100 Oxygen Delivery Method Room Air <Dr. Krishan Barry DO - Last Filed: 06/08/25 12:10> Physical Exam Const Vital Signs: 06/08/25 11:32 06/08/25 12:10 Temperature 96.5 F L 98.3 F Temperature Source Temporal Pulse Rate 81 77 Respiratory Rate 14 18 Blood Pressure 150/78 H 145/57 H Blood Pressure Mean 102 86 Pulse Ox 98 100 Oxygen Delivery Method Room Air MDM <ROBYN Brooks - Last Filed: 06/08/25 12:13> [facility] Narrative Medical decision making narrative: Patient has left mid forearm swelling x 3 days. It feels like a firm nodule with overlying erythema and tenderness. There is no fluctuance no indication for I&D. She is neurovascularly intact. There is no joint involvement so I am not concerned for septic joint. It is likely cellulitis and she was started on Keflex and discharged in stable condition with return precautions. <Dr. Krishan Barry, - Last Filed: 06/08/25 12:10> [facility] Treatment and Re-Evaluation :: I have personally performed a face to face assessment of the patient and have reviewed the TANIKA Note. I performed a substantive portion of the visit including all aspects of the following. My dorsey findings include: History: Patient presents with redness and swelling to her left forearm that has been getting worse over the past 3 to 4 days. Patient thinks she may have been bitten by a spider. Patient denies any fevers or chills. Patient states her pain is dull. Patient states it is over the ulnar aspect of her left forearm. Patient states nothing makes it better and nothing makes it worse. Patient denies any paresthesias or weakness. Patient denies any trauma or injury. Exam: Vital signs are stable. Patient is afebrile. Patient is in no acute distress. Skin is warm and dry. There is erythema and warmth over the ulnar aspect of the left forearm. There is a tender indurated area over this area. There is no fluctuance. There is no evidence of any abscess. There is full range of motion of the left elbow, forearm, and wrist. Radial pulses are equal bilaterally. Sensation was intact to light touch in the radial, median, and ul jamie areas. Medical Decision Making: Patient was advised that this is likely a cellulitis. Patient was given a dose of Keflex here. Patient was given a prescription for Keflex. Patient was instructed to use warm compresses to the area. Patient was instructed to follow-up with her primary care physician in 5 to 7 days. Patient understood and was agreeable with the plan. All questions were answered. Discharge Plan Triage Chief Complaint: Bite ED Midlevel Provider: Rosalie La ED Provider: Krishan Barry Dx/Rx/DC Orders Clinical Impression: Cellulitis of left forearm, Insect bite Instructions: Cellulitis Dc Prescriptions: New cephalexin 500 mg capsule 500 mg PO Q6 7 Days Qty: 28 0RF No Action zaleplon 5 mg capsule 5 mg PO QHS famotidine [Pepcid] 40 mg tablet 40 mg PO BID Qty: 60 2RF alprazolam 0.5 mg tablet 0.5 mg PO BID escitalopram oxalate 20 mg tablet 20 mg PO DAILY mirtazapine 15 mg tablet 15 mg PO QHS ondansetron HCl 4 mg tablet 4 mg PO Q8H PRN (Reason: nausea and vomiting) ropinirole 1 mg tablet 1 mg PO QHS rosuvastatin [Crestor] 5 mg tablet 5 mg PO DAILY methocarbamol 750 mg tablet 750 mg PO TID acetaminophen 500 mg tablet 500 mg PO Q8H PRN (Reason: pain) albuterol sulfate 90 mcg/actuation HFA aerosol inhaler 2 puff inhalation Q6H PRN (Reason: shortness of breath or wheezing) gabapentin 600 mg tablet 800 mg PO TID Primary Care Provider: Lydia Flores Referrals: Lydia Flores, GARMENT SEWING MACHINE OPERATOR-C [Primary Care Provider] - Activity Restrictions/Additional Instructions: Monitor the area and if you have spreading redness, red streaking, increased swelling, or fever please come back to the ER. Print Language: [place] Disposition Disposition: Home, Self Care
[2025-06-08 12:10] VITALS: BP 145/57; PULSE 77; RESP 18; TEMP 36.8; O2SAT 100
== END 2025-06-08 12:12 | disposition home or self-care (01) ==
LOC: ED 11:52
PROVIDERS: Emergency Provider Emergency Medicine; PCP Nurse Practitioner Family; Visit Provider Emergency Medicine
DX: L03.114 Cellulitis of left upper limb (principal); J44.9 Chronic obstructive pulmonary disease, unspecified; S51.852A Open bite of left forearm, initial encounter; F17.210 Nicotine dependence, cigarettes, uncomplicated; X58.XXXA Exposure to other specified factors, initial encounter
CPT/HCPCS: 99282

== ENCOUNTER → 2025-06-08 | Outpatient (CLI) | payer MEDICARE, MEDICAID, SELFPAY ==
--- NOTE | 2025-06-08 12:47 | MRI_ITS ---
PROCEDURE: UPPER EXT JOINT ONLY(ROUTINE) 06/08/2025 REASON FOR EXAM: PAIN for approximately 3 years. Prior right shoulder surgery. Numbness and tingling in right upper extremity. TECHNIQUE: UPPER EXT JOINT ONLY(ROUTINE) Multiplanar and multisequence images were obtained without and with IV contrast administration. Contrast: Clariscan 13 mL intravenous. COMPARISON: COMPARISON: Right shoulder study of 04/23/2025. FINDINGS: Bone Marrow: No acute osseous signal changes seen Bone and joints: Moderate right acromioclavicular joint degenerative changes are seen. A small amount of fluid is seen within the subacromial/subdeltoid bursa. The right glenohumeral joint demonstrates minimal degenerative changes. Effusion: No joint effusion is seen. Soft Tissues: A small partial tear of the teres minor muscle is also seen. No associated tendon tear is clearly appreciated. Ligaments and Tendons: Moderate supraspinatus tendinosis is seen. Superimposed is seen [id number] sized partial-thickness oblique tear, extending to the bursal surface. Mild infraspinatus tendinosis is noted. The long head of the biceps tendon appears intact. MRI/Upper Ext Joint Only(Routine) IMPRESSION: 1. Degenerative changes as noted. 2. Moderate supraspinatus tendinosis, with superimposed [id number] sized partial-thickness oblique tear, extending to the bursal surface. 3. Mild infraspinatus tendinosis. 4. Small partial tear of the teres minor muscle. Reading Location: [place] [id number]
--- NOTE | 2025-06-08 12:47 | MRI_ITS ---
PROCEDURE: SPINE LUMBAR W/WO CONTRAST 06/08/2025 REASON FOR EXAM: PAIN, LOOSENING OF HARDWARE TECHNIQUE: SPINE LUMBAR W/WO CONTRAST Multiplanar and multisequence images were obtained without and with intravenous gadolinium-based contrast administration. CONTRAST: Clariscan VOLUME: 13 mL COMPARISON: MRI lumbar spine April 28, 2025. FINDINGS: Vertebrae: Preserved. Normal signal. Alignment: Anterolisthesis L4 on L5 by 2 mm. Conus Medullaris: Unremarkable conus medullaris and cauda equina nerves. No abnormal enhancement. Disc levels: Status post laminectomies and posterior fusion L2 through L5. No significant foraminal or canal stenosis. Sacrum: Unremarkable. Postcontrast images: No enhancing lesions or cysts. No acute process. The cauda equina nerves are unremarkable. MRI/Spine Lumbar W/WO Contrast IMPRESSION: Postsurgical changes without abnormal enhancement, acute process or significant foraminal or canal stenosis. Reading Location: [id number]
== END | disposition home or self-care (01) ==
LOC: MRI 12:44
PROVIDERS: PCP Nurse Practitioner Family; Referring Provider Student in an Organized Health Care Education/Training Program; Visit Provider Student in an Organized Health Care Education/Training Program
DX: M25.511 Pain in right shoulder (principal); T84.498A Other mechanical complication of other internal orthopedic devices, implants and grafts, initial encounter; M54.16 Radiculopathy, lumbar region; Z98.1 Arthrodesis status
CPT/HCPCS: 72158; 73221; A9575

== ENCOUNTER 2025-07-21 08:13 | Day surgery (SDC) | payer MEDICARE, MEDICAID, SELFPAY ==
[2025-07-21] VITALS (7 sets, daily range): BP systolic 98–104; BP diastolic 46–72; PULSE 68–79; RESP 12–18; TEMP 36.1–36.7; O2SAT 96–100; BMI 23.0
[2025-07-21] MEDS: Lactated Ringers 1,000 ML 15 ML IV (08:42)
--- NOTE | 2025-07-21 09:01 | PCM.PRE.AN2 ---
ASA Classification* ASA Classification ASA Classification: 2 Assessment & Plan Anesthesia* Anesthesia Assessment Anesthesia Assessment: Discussed sedation and/or anesthesia options, risks, benefits, and alternatives with patient/parents/legal guardian/POA. Questions invited. The patient/parents/legal guardian/POA seems to understand and agrees to proceed with anesthesia plan. Reviewed the physical assessment, medical history, allergy history and patient home medications list prior to surgery/procedure/anesthetic and documented any changes. Performed airway and anesthesia risk assessments. Anesthesia Type Anesthesia Type: MAC Anesthesia Focused Assessment* Temperature: 97 F Pulse Rate: 79 Blood Pressure: 104/70 Respiratory Rate: 16 Pulse Ox: 100 Airway Assessment Mouth opens: >3 cm Mallampati Score: II Labs Anesthesia Preop lab: CBC WBC, (4.4-11.0) 6.4 K/mm3 03/24/25, 10:48 RBC, (4.2-5.4) 3.50 M/mm3 L 03/24/25, 10:48 Hgb, (12.0-15.0) 12.3 g/dL 03/24/25, 10:48 Hct, (37-47) 36.9 % L 03/24/25, 10:48 Plt Count, (150-450) 377 K/mm3 03/24/25, 10:48 CHEMISTRY Potassium, (3.3-5.1) 3.8 mmol/L 03/24/25, 10:48 Sodium, (133-145) 139 mmol/L 03/24/25, 10:48 Magnesium, (1.6-2.6) 2.2 mg/dL 12/09/23, 10:45 Phosphorus, (2.5-4.9) 2.5 mg/dL 12/09/23, 10:45 BUN, (4-19) 11 mg/dL 03/24/25, 10:48 Creatinine, (0.70-1.20) 0.81 mg/dL 03/24/25, 10:48 Glucose, (70-99) 94 mg/dL 03/24/25, 10:48 TSH, (0.300-4.200) 1.420 uIU/mL 03/24/25, 10:48 COAG Pre-Assessment Diagnosis/Proposed Procedure Planned Operative Procedure(s): EGD/CSCOPE Anesthesia History Anesthesia History - buffet attendant: Anesthesia History - buffet attendant Hx Hospitalization No 07/18/25 14:17 Any Problems With Anesthesia No 07/18/25 14:17 Cholinesterase deficiency No 07/18/25 14:17 You/Your Family Experience No 07/18/25 14:17 fever (hyperthermia) with Relationship Recent Exposure to Contagious No 07/21/25 08:32 Disease Does patient have nerve No 07/18/25 14:17 stimulator Patient instructed to have device shut off --Does patient have Pacemaker No 07/21/25 08:32 or ICD? When Was Last Pacemaker Check QUESTION #4 FULL TEXT: You/Your Family Experience fever (hyperthermia) with Anesthesia Last Oral Intake Last Oral intake: Last Oral Intake NPO since 06:30 07/21/25 08:32 Meds taken in AM with sips of Yes 07/21/25 08:32 water? Meds patient instructed to see mar 07/21/25 08:32 take am of surgery PONV PONV - buffet attendant: PONV - buffet attendant Female Yes 07/18/25 14:17 HX of Motion Sickness No 07/18/25 14:17 HX of N/V After Surgery No 07/18/25 14:17 Non-Smoker No 07/18/25 14:17 Duration of Surgery greater No 07/18/25 14:17 than 60 minutes Number of Risk Factors 1 07/18/25 14:17 PONV Score Low Risk 07/18/25 14:17 Height & Weight Height & Weight: Anesthesia: Height & Weight Height 5 ft 4 in 07/21/25 08:32 Weight: 60.781 kg 07/21/25 08:32 Body Mass Index (BMI) 23.0 07/21/25 08:32 Respiratory Assessment Respiratory Assessment - buffet attendant: Respiratory Tract Infection Hx - buffet attendant Hx Respiratory Tract Infection No 07/18/25 14:17 STOP Sleep Apnea STOP Sleep Apnea - buffet attendant: STOP Sleep Apnea - buffet attendant Hx Hypertension No 07/18/25 14:17 Hx Sleep Apnea No 07/18/25 14:17 CPAP BIPAP Do you snore loudly (louder No 07/18/25 14:17 than talking or can be heard Do you often feel tired/ No 07/18/25 14:17 fatigued/ sleepy during daytime? Has anyone observed you stop No 07/18/25 14:17 breathing during sleep? STOP Results Negative 07/18/25 14:17 QUESTION #5 FULL TEXT : Do you snore loudly (louder than talking or can be heard through closed doors)? Tobacco Use History Tobacco Use History - buffet attendant: Tobacco Use History - buffet attendant Tobacco Use Smoking Status Current every day smoker 07/18/25 14:17 Hx Tobacco Use Yes 07/18/25 14:17 Years Smoking Packs Smoked per Day Smoking Cessation Date was within the last 15 years Hx Smoking Cessation Date Hx Smoking Cessation No 07/18/25 14:17 Counseling Hematologic Medial History Hematologic Hx - buffet attendant: Hematologic Medical Hx - technical specialist cytogenetics Hx of Blood Transfusion No 07/18/25 14:17 Hx of Transfusion in last 3 No 07/18/25 14:17 Months Date of Last Transfusion (if within last 3 months) Ever experience any problems No 07/18/25 14:17 with transfusion(s)? Specify any problems Hx of Preganancy in last 3 No 07/18/25 14:17 Months Nurse Filling Out Transfusion DSCHRIBER 07/18/25 14:17 & Questions: Date: 07/18/25 07/18/25 14:17 Time: 14:19 07/18/25 14:17 Patient unable to answer at this time (ie. confused, unrespo /Reproduction History /Reproductive History - buffet attendant: /Reproductive Hx- buffet attendant Hx Now No 07/18/25 14:17 Gestational Age (in weeks): EDC: Hx Hx Para Hx Section SAB No 07/18/25 14:17 Active Medications Active Medications: Current Medications Generic Name Dose Route Start Last Admin Trade Name Freq PRN Reason Stop Dose Admin Lactated Ringer's 1,000 mls @ 15 mls/hr 07/21/25 08:30 07/21/25 08:42 IV 15 mls/hr .Q48H SONIA Administration PFSH Medical History Loss of hearing Wears glasses Edentulism, complete Post-menopausal Chronic eczema History of steroid therapy Arthritis Difficulty chewing History of IBS Gastric reflux Shortness of breath on exertion Hoarseness COPD (chronic obstructive pulmonary disease) Chronic cough Leg cramps History of pain when walking Arthrosis of right acromioclavicular joint Impingement of right shoulder Cervical myelopathy Pseudarthrosis Fibromyalgia Right shoulder pain Chronic back pain Tobacco use Anxiety and depression RLS (restless legs syndrome) HLD (hyperlipidemia) Home Medications ?Medication ?Instructions ?Recorded ?Last Taken ?Type acetaminophen 500 mg tablet 500 mg PO Q8H PRN pain 12/09/23 12/07/23 History albuterol sulfate 90 mcg/actuation 2 puff inhalation Q6H PRN 12/09/23 12/08/23 History aerosol inhaler shortness of breath or wheezing alprazolam 0.5 mg tablet 0.5 mg PO TID 12/09/23 07/20/25 History escitalopram oxalate 20 mg tablet 20 mg PO QHS 12/09/23 12/08/23 History methocarbamol 750 mg tablet 750 mg PO TID 12/09/23 07/21/25 History mirtazapine 15 mg tablet 15 mg PO QHS 12/09/23 12/08/23 History ondansetron HCl 4 mg tablet 4 mg PO Q8H PRN nausea and vomiting 12/09/23 07/21/25 History ropinirole 1 mg tablet 2 mg PO QHS 12/09/23 12/08/23 History rosuvastatin 5 mg tablet (Crestor) 5 mg PO QHS 12/09/23 12/08/23 History zaleplon 5 mg capsule 5 mg PO QHS 03/23/25 Unknown History famotidine 40 mg tablet (Pepcid) 40 mg PO BID #60 tabs 03/24/25 07/21/25 Rx gabapentin 800 mg tablet 800 mg PO TID 07/18/25 07/21/25 History Allergy/AdvReac Type Severity Reaction Status Date / Time amoxicillin Allergy Mild Diarrhea Verified 07/21/25 08:30 dexlansoprazole Allergy Mild Diarrhea Verified 07/21/25 08:30 Influenza Virus Vaccines Allergy Mild Vomiting Verified 07/21/25 08:30 morphine Allergy Mild Vomiting Verified 07/21/25 08:30 sulfamethoxazole (From Allergy Mild Rash Verified 07/21/25 08:30 Bactrim) trimethoprim (From Bactrim) Allergy Mild Rash Verified 07/21/25 08:30 hydroxychloroquine Allergy Unknown NEEDS Verified 07/21/25 08:30 FOLLOW-UP metronidazole AdvReac Mild BLOATING Verified 07/21/25 08:30 Family History Mother Diabetes Father Heart disease Hypertension CAD (coronary artery disease) Myocardial infarction Surgical History History of esophagogastroduodenoscopy (EGD) Hx of colonoscopy Hx of umbilical hernia repair History of tympanoplasty S/P total abdominal hysterectomy Hx of cholecystectomy History of arthroscopy of right shoulder H/O removal of cyst History of back surgery Social History household members: none Smoking Status: Current every day smoker tobacco type: cigarettes alcohol intake: never substance use type: does not use Review of Systems (Anesthesia) ROS Narrative System reviewed and no additional complaints, except as documented.
--- NOTE | 2025-07-21 09:09 | PCM.HP.STD ---
HPI - General General Date of Admission: 07/21/25 Date of Service: 07/21/25 Chief Complaint: abdominal pain and abnormal CT scan HPI Narrative OK BROOKS, is a 65 F who presents with the Chief Complaint: CT Review 03.25.25 OV establishment with [facility] regarding concerns of diarrhea x3days straight. She has PMHx: COPD, Anxiety and Depression, RLS, HLD, GERD, Chronic back pain/neuropathy, Tobacco use. She reports that she doesn't eat until she's home because food runs right through and I don't like public restrooms. She reports having used Colestipol in the past for diarrhea just like this and it helped for over a year before it stopped working. Fecal elastase >800 and barium swallow demonstrating tablet trapped at the gastroesophageal junction on 03.17.25. 07.20.23 Colonoscopy: nonbleeding medium-sized internal hemorrhoids. 05.12.24 EGD w/[facility]: normal mucosa in esophagus, tortuous esophagus, z-line irregular 37cm from incisors, erythematous mucosa in antrum-biopsied, Rashard-fundoplication found and wrap appears intact. PATHOLOGY reactive gastropathy, no Hpylori, mild reactive epithelial changes, negative eosinophilia. She states that she doesn't know what a stomach wrap or Rashard is when questioned regarding EGD findings. She states I think I have Celiac disease, they dilated my throat, that's all I can remember. She reports unintentional weight loss from how much diarrhea she's having, but has not weighed herself. She states that she has a decent amount of heartburn felt upper to midsternal, right where it feels like I have food get stuck but I'm not choking. She denies waking to a sour taste in her mouth. She denies difficulty chewing, regurgitation of food, excess gas, constipation, hematochezia and melena. *omeprazole 40mg PO twice daily 30minutes before eating breakfast and dinner *famotidine 40mg PO twice daily, one dose at bedtime 03.28.25 Contact - She cannot take either the cholestyramine or Prilosec. The powder caused her to get very sick and she cannot use the Prilosec because it does not work for her, it causes her to get cramps. She stated she cannot take the Prilosec, Prevacid or Carafate due to getting cramps the only stomach med she can take and tolerate is Pepcid 40 mg BID. Her doctor had her on that at one point and she said it was lowered to 20 BID and now it is not helping so she would like to speak to Laura directly or the nurse, said she would like to get back on the 40 mg BID 03.28.25 Contact - She stated she cannot take the Famotidine either. It does not stop the burning in her stomach like the Pepcid does. She said she is getting bubbles, then she gets gassy and then gets diarrhea. Reinforced low FODMAP diet. She wants a pill that will fix this. 05.28.25 CT Abd/pelvis Patient may be status post fundoplication, with some unwrapping of the fundoplication. Stomach is nondistended. Multiple mid abdominal small bowel loops are upper limits of normal for size without specific evidence of obstruction. Normal appendix. There is relative lack of haustration in the distal half of the large bowel, with moderate stool. Correlate for laxative abuse or ulcerative colitis. 06.06.25 Contact - Pt calling in stating she went to the bathroom and looked at her stool and saw worms or squiggly things. She said shes never seen this before. She then became tearful and said no one can figure out whats going on with her. Says she cant eat without being near the restroom. Says she will keep an eye on her stools. She has an appointment with us this Saturday 06/09. 06.09.25 OV Presents stating immediately, You've got to fix this! Or give me Depends undergarments! She reports nothing but water coming out of me and continues to state that she can not tolerate the cholestyramine, that colestipol stopped working, Protonix doesn't work and caused abdominal cramping. She has a lot of stomach bubbling. Denies following low FODMAP diet, states I eat what I want, you can't take that away from me. I get my veggies delivered. I want to eat my bread and potatoes. Just fix this. We reviewed her recent CT results, she denies ever using laxatives as described by radiologist for possible reason of the lack of haustration. She states that she only saw one wiggly worm one time I think. My stomach peace with every meal. I'm taking 3 to 4 of those Pepcids every day. Nothing is helping. [facility] Medical History Loss of hearing Wears glasses Edentulism, complete Post-menopausal Chronic eczema History of steroid therapy Arthritis Difficulty chewing History of IBS Gastric reflux Shortness of breath on exertion Hoarseness COPD (chronic obstructive pulmonary disease) Chronic cough Leg cramps History of pain when walking Arthrosis of right acromioclavicular joint Impingement of right shoulder Cervical myelopathy Pseudarthrosis Fibromyalgia Right shoulder pain Chronic back pain Tobacco use Anxiety and depression RLS (restless legs syndrome) HLD (hyperlipidemia) Home Medications ?Medication ?Instructions ?Recorded ?Last Taken ?Type acetaminophen 500 mg tablet 500 mg PO Q8H PRN pain 12/09/23 12/07/23 History albuterol sulfate 90 mcg/actuation 2 puff inhalation Q6H PRN 12/09/23 12/08/23 History aerosol inhaler shortness of breath or wheezing alprazolam 0.5 mg tablet 0.5 mg PO TID 12/09/23 07/20/25 History escitalopram oxalate 20 mg tablet 20 mg PO QHS 12/09/23 12/08/23 History methocarbamol 750 mg tablet 750 mg PO TID 12/09/23 07/21/25 History mirtazapine 15 mg tablet 15 mg PO QHS 12/09/23 12/08/23 History ondansetron HCl 4 mg tablet 4 mg PO Q8H PRN nausea and vomiting 12/09/23 07/21/25 History ropinirole 1 mg tablet 2 mg PO QHS 12/09/23 12/08/23 History rosuvastatin 5 mg tablet (Crestor) 5 mg PO QHS 12/09/23 12/08/23 History zaleplon 5 mg capsule 5 mg PO QHS 03/23/25 Unknown History famotidine 40 mg tablet (Pepcid) 40 mg PO BID #60 tabs 03/24/25 07/21/25 Rx gabapentin 800 mg tablet 800 mg PO TID 07/18/25 07/21/25 History Allergy/AdvReac Type Severity Reaction Status Date / Time amoxicillin Allergy Mild Diarrhea Verified 07/21/25 08:30 dexlansoprazole Allergy Mild Diarrhea Verified 07/21/25 08:30 Influenza Virus Vaccines Allergy Mild Vomiting Verified 07/21/25 08:30 morphine Allergy Mild Vomiting Verified 07/21/25 08:30 sulfamethoxazole (From Allergy Mild Rash Verified 07/21/25 08:30 Bactrim) trimethoprim (From Bactrim) Allergy Mild Rash Verified 07/21/25 08:30 hydroxychloroquine Allergy Unknown NEEDS Verified 07/21/25 08:30 FOLLOW-UP metronidazole AdvReac Mild BLOATING Verified 07/21/25 08:30 Family History Mother Diabetes Father Heart disease Hypertension CAD (coronary artery disease) Myocardial infarction Surgical History History of esophagogastroduodenoscopy (EGD) Hx of colonoscopy Hx of umbilical hernia repair History of tympanoplasty S/P total abdominal hysterectomy Hx of cholecystectomy History of arthroscopy of right shoulder H/O removal of cyst History of back surgery Social History household members: none Smoking Status: Current every day smoker tobacco type: cigarettes alcohol intake: never substance use type: does not use ROS Constitutional Constitutional: Denies fatigue, fever(s), poor appetite, weight gain or weight loss Gastrointestinal Gastrointestinal: Denies belching, bloating, change in bowel habits, change in stool character, chewing difficulty, coffee ground emesis, constipation, cramping, diarrhea, dyspepsia, dysphagia, early satiety, excessive flatus, fecal incontinence, heartburn, hematemesis, hematochezia, hemorrhoids, loose stools, melena, nausea, odynophagia, rectal bleeding, tenesmus, vomiting or weight changes Vital Signs Vital Signs Vital Signs: 07/21/25 08:32 07/21/25 08:32 07/21/25 09:02 Temperature 97 F L 97 F L Temperature Source Temporal Pulse Rate 79 79 Respiratory Rate 16 16 Respiratory Pattern Normal Blood Pressure 104/70 104/70 Blood Pressure Mean 81 Blood Pressure Source Monitor Blood Pressure Position Semi-Fowlers Blood Pressure Location Left Arm Pulse Ox 100 100 Oxygen Delivery Method Room Air Weight Weight: 134 lb Body Mass Index (BMI) 23.0 Physical Exam Const alert, oriented x3, no apparent distress and healthy appearing General Appearance: cooperative GI normal to inspection, nondistended, normoactive bowel sounds, soft to palpation, non-tender and non-distended Percussion: normal to percussion Rectal Exam: deferred Assessment & Plan Assessment/Plan (1) Irritable bowel syndrome with diarrhea: PLAN: Assessment and Plan Assessment and Plan (1) Abdominal pain: Status: Acute Qualifiers: Abdominal location: right upper quadrant Qualified Code(s): R10.11 - Right upper quadrant pain (2) Diarrhea: Status: Acute Qualifiers: Diarrhea type: unspecified type Qualified Code(s): R19.7 - Diarrhea, unspecified (3) Heartburn: Status: Acute (4) Irritable bowel syndrome with diarrhea: Status: Acute Medications: New rifaximin 550 mg PO TID 42 tabs 2RF rifaximin 550 mg PO TID 42 tabs 2RF Plan OK BROOKS, is a 65 F who presents to the office today for FU. Discussed care plan with her. I refused to increase her dosing or frequency of famotidine at this time. Informed her of the side effects of increased dosing, including: most commonly headache, dizziness, and constipation; less frequent effects include fatigue, palpitations, elevated liver enzymes, nausea/vomiting, abdominal discomfort, anorexia, dry mouth, rash/urticaria/bronchospasm, thrombocytopenia, musculoskeletal pain, and sexual dysfunction. rifaximin 550mg PO TID [id number] for IBS-D recommend probiotic use starting day #8 of rifaximin schedule bidirectional endoscopies office FU 2wks after endoscopies
--- NOTE | 2025-07-21 09:30 | COLBX_PTH ---
PATIENT: OK BROOKS LOC: EN U#:[id number] AGE/SX: 65/F ROOM: RE07/21/[address]: Dr. Stanley Samaniego DO : 1960 BED: DIS: 07/21/2025 SPEC #: [id number] RECD: 07/21/25 10:01 STATUS: ROSALIE REJosie #: [id number] CATRACHITO: 07/21/25 09:[address]: Stanley Samaniego DEPT: SURGICAL PATHOLOGY RECD BY: Harpreet Blackwell ENTERED: 07/21/25 13:04 SP TYPE: COLON BX OTHR DR: Lydia Flores, [facility], SOLUTIONS OPERATOR-C Tissues: A - Gastric mucous membrane B - Duodenum, NOS C - Esophagus, NOS D - COLON BIOPSY Procedures: Immunohistochemical Stains Trichrome (control) Special Stain Group I Surgery Specimen Level IV HEADER OPERATION: Colonoscopy, EGD and biopsy and dilatation PRE-OP DIAGNOSIS: Abdominal pain, diarrhea, heartburn, abnormal CT TISSUE SUBMITTED: A- Gastric body biopsy, B- Duodenum biopsy, C- Random esophagus biopsy, D- Random colonic biopsy MICROSCOPIC DIAGNOSIS A. Gastric body, biopsy: * Oxyntic mucosa with features of reactive gastropathy. * IHC negative for H. pylori organisms. B. Duodenum, biopsy: * Chace gland hyperplasia and mild acute inflammation, suggestive of peptic injury. * Negative for increased intraepithelial lymphocytes. C. Esophagus, random. biopsy: * No specific pathologic change. D. Colon, random, biopsy: * Patchy mildly increased intraepithelial lymphocytes - see note. Note: The mild intraepithelial lymphocytosis raises consideration of lymphocytic (microscopic) colitis. The histologic differential diagnosis includes mild or resolving infection and medication injury reaction. A trichrome stain is negative for collagenous colitis. Recommend correlation with clinical and endoscopic findings. MICROSCOPIC DESCRIPTION Slides are reviewed. All matched controls reacted appropriately. These tests were developed and their performance characteristics determined by [facility]. They may not have been cleared or approved by the U.S. Food and Drug Administration. The FDA has determined that such clearance or approval is not necessary. The above immunohistochemical markers and/or special stains have been reviewed by the Pathologist. GROSS DESCRIPTION A. Received in fixative is one container labeled with the patient's name and designated Gastric body biopsy. The specimen consists of two irregular fragments of light kan soft tissue, each measuring 0.3 cm. The specimen is totally submitted in one cassette. B. Received in fixative is one container labeled with the patient's name and designated Duodenum biopsy. The specimen consists of one irregular fragment of light kan soft tissue that measures 0.5 cm. The specimen is totally submitted in one cassette. C. Received in fixative is one container labeled with the patient's name and designated Random esophagus biopsy. The specimen consists of three irregular fragments of light kan soft tissue that measure 0.1 to 0.3 cm. The 2 smallest fragments may not survive processing. The specimen is totally submitted in one cassette. D. Received in fixative is one container labeled with the patient's name and designated Random colonic biopsy. The specimen consists of multiple irregular fragments of light kan soft tissue that in aggregate measure 1.7 x 0.6 x 0.1 cm. The specimen is totally submitted in one cassette. MO 07/21/2025 CPT:10627x3,59997,29430
--- NOTE | 2025-07-21 09:45 | PCM.POST.ANE ---
Anesthesia: Postop Eval I Current Vital Signs Temperature: 97 F Pulse Rate: 73 Blood Pressure: 101/66 Respiratory Rate: 16 Pulse Ox: 98 Oxygen Delivery Method: Room Air Assessment Airway patent: Yes Spontaneous unlabored respirations: Yes Mental status: Asleep nausea: No Vomiting: No Anesthesia Complication: No Fluid Hydration Crystalloid volume administer (ml): 700 Total IV fluid infused: 700 Progress Note Anesthesia document: Postop Eval 1 completed: Yes
--- NOTE | 2025-07-21 09:46 | OP.EGD_ITS ---
Patient Name: Kailyn Yuen Procedure Date: 07/21/2025 9:11 AM Date of : 1960 Age: 65 Procedure: Upper GI endoscopy Indications: Epigastric abdominal pain, Functional Dyspepsia, Indigestion Providers: Stanley Samaniego DO Referring MD: Lydia Flores [facility], Voucher Examiner-c Medicines: Monitored Anesthesia Care Patient Profile: This is a 65 year old female. Refer to note in patient chart for documentation of history and physical. Patient has symptoms of chronic abdominal cramping, chronic abdominal distention and chronic epigastric abdominal pain. Complications: No immediate complications. Procedure: Pre-Anesthesia Assessment: - Prior to the procedure, a History and Physical was performed, and patient medications and allergies were reviewed. The patient is competent. The risks and benefits of the procedure and the sedation options and risks were discussed with the patient. All questions were answered and informed consent was obtained. Patient identification and proposed procedure were verified by the physician in the pre-procedure area. Mental Status Examination: alert and oriented. Airway Examination: normal oropharyngeal airway and neck mobility. Respiratory Examination: clear to auscultation. CV Examination: normal. Prophylactic Antibiotics: The patient does not require prophylactic antibiotics. Prior Anticoagulants: The patient has taken no anticoagulant or antiplatelet agents. ASA Grade Assessment: II - A patient with mild systemic disease. After reviewing the risks and benefits, the patient was deemed in satisfactory condition to undergo the procedure. The anesthesia plan was to use monitored anesthesia care (MAC). Immediately prior to administration of medications, the patient was re-assessed for adequacy to receive sedatives. The heart rate, respiratory rate, oxygen saturations, blood pressure, adequacy of pulmonary ventilation, and response to care were monitored throughout the procedure. The physical status of the patient was re-assessed after the procedure. After obtaining informed consent, the endoscope was passed under direct vision. Throughout the procedure, the patient's blood pressure, pulse, and oxygen saturations were monitored continuously. The Colonoscope was introduced through the mouth, and advanced to the fourth part of the duodenum. Small bowel enteroscopy was deemed necessary. The upper GI endoscopy was accomplished with ease. The patient tolerated the procedure well. Scope In: 9:18:04 AM Scope Out: 9:24:49 AM Total Procedure Duration Time 0 hours 6 minutes 45 seconds Findings: Non-severe esophagitis with no bleeding was found. Biopsies were taken with a cold forceps for histology. Verification of patient identification for the specimen was done. Estimated blood loss was minimal. One benign-appearing, intrinsic moderate stenosis was found 37 to 40 cm from the incisors. This stenosis measured 5 cm (in length). The stenosis was traversed. A guidewire was placed and the scope was withdrawn. Dilation was performed with a Savary dilator with no resistance at 57 Fr. The dilation site was examined and showed moderate mucosal disruption. Estimated blood loss: Minimal. Evidence of a fundoplication was found in the gastric fundus. The wrap appeared intact. Bilious fluid was found in the entire examined stomach. Biopsies were taken with a cold forceps for histology. Verification of patient identification for the specimen was done. Estimated blood loss was minimal. Biopsies were taken with a cold forceps for Helicobacter pylori testing. Verification of patient identification for the specimen was done. Estimated blood loss was minimal. Patchy mildly erythematous mucosa without active bleeding and with no stigmata of bleeding was found in the entire duodenum. Biopsies were taken with a cold forceps for histology. Verification of patient identification for the specimen was done. Estimated blood loss was minimal. Impression: - Non-severe non-erosive esophagitis with no bleeding. Biopsied. - Benign-appearing esophageal stenosis. Dilated. - A fundoplication was found. The wrap appears intact. - Bilious gastric fluid. Biopsied. - Erythematous duodenopathy. Biopsied. Recommendation: - Discharge patient to home. - Resume previous diet. - Continue present medications. - Await pathology results. Procedure Code(s): --- Professional --- 15494, Esophagogastroduodenoscopy, flexible, transoral; with insertion of guide wire followed by passage of dilator(s) through esophagus over guide wire 99238, 59,51, Small intestinal endoscopy, enteroscopy beyond second portion of duodenum, not including ileum; with biopsy, single or multiple CPT copyright 2021 [employer]. All rights reserved. The codes documented in this report are preliminary and upon control center operator review may be revised to meet current compliance requirements. Stanley Samaniego DO 07/21/2025 9:45:58 AM This report has been signed electronically. Number of Addenda: 0 Note Initiated On: 07/21/2025 9:11 AM
--- NOTE | 2025-07-21 09:46 | OP.PROVAT_ITS ---
07/21/2025 Lydia Flores [facility], Real Estate Asset Manager-c Re : Upper GI endoscopy procedure for Kailyn Gómezr Mark This procedure was performed on Monday, July 21, 2025. My impressions and recommendations are as follows: Impressions : - Non-severe non-erosive esophagitis with no bleeding. Biopsied. - Benign-appearing esophageal stenosis. Dilated. - A fundoplication was found. The wrap appears intact. - Bilious gastric fluid. Biopsied. - Erythematous duodenopathy. Biopsied. Recommendations : - Discharge patient to home. - Resume previous diet. - Continue present medications. - Await pathology results. My findings are described in the full procedure note, which is enclosed. If I can be of further assistance, please feel free to contact me at . Sincerely, Stanley Samaniego, 07/21/2025 9:45:58 AM This report has been signed electronically.
--- NOTE | 2025-07-21 09:51 | OP.COLON_ITS ---
Patient Name: Kailyn Yuen Procedure Date: 07/21/2025 9:24 AM Date of : 1960 Age: 65 Procedure: Colonoscopy Indications: Chronic diarrhea Providers: Stanley Samaniego DO Referring MD: Lydia Flores [facility], Song Lyricist-c Medicines: Monitored Anesthesia Care Patient Profile: This is a 65 year old female. Refer to note in patient chart for documentation of history and physical. Patient has symptoms of chronic abdominal cramping, chronic abdominal distention and chronic epigastric abdominal pain. Last Colonoscopy: several years ago. Complications: No immediate complications. Procedure: Pre-Anesthesia Assessment: - Prior to the procedure, a History and Physical was performed, and patient medications and allergies were reviewed. The patient is competent. The risks and benefits of the procedure and the sedation options and risks were discussed with the patient. All questions were answered and informed consent was obtained. Patient identification and proposed procedure were verified by the physician in the pre-procedure area. Mental Status Examination: alert and oriented. Airway Examination: normal oropharyngeal airway and neck mobility. Respiratory Examination: clear to auscultation. CV Examination: normal. Prophylactic Antibiotics: The patient does not require prophylactic antibiotics. Prior Anticoagulants: The patient has taken no anticoagulant or antiplatelet agents. ASA Grade Assessment: II - A patient with mild systemic disease. After reviewing the risks and benefits, the patient was deemed in satisfactory condition to undergo the procedure. The anesthesia plan was to use monitored anesthesia care (MAC). Immediately prior to administration of medications, the patient was re-assessed for adequacy to receive sedatives. The heart rate, respiratory rate, oxygen saturations, blood pressure, adequacy of pulmonary ventilation, and response to care were monitored throughout the procedure. The physical status of the patient was re-assessed after the procedure. After I obtained informed consent, the scope was passed under direct vision. Throughout the procedure, the patient's blood pressure, pulse, and oxygen saturations were monitored continuously. The Colonoscope was introduced through the anus and advanced to the terminal ileum. The colonoscopy was performed without difficulty. The patient tolerated the procedure well. The quality of the bowel preparation was fair. The terminal ileum, ileocecal valve, appendiceal orifice, and rectum were photographed. Scope In: 9:25:47 AM Scope Withdrawal Time 0 hours 8 minutes 17 seconds Scope Out: 9:36:44 AM Total Procedure Duration Time 0 hours 10 minutes 57 seconds Findings: The perianal and digital rectal examinations were normal. Stool was found in the rectum, in the recto-sigmoid colon, in the sigmoid colon, in the descending colon and in the cecum. An area of moderately congested mucosa was found in the entire colon. Biopsies were taken with a cold forceps for histology. Verification of patient identification for the specimen was done. Estimated blood loss was minimal. Impression: - Preparation of the colon was fair. - Stool in the rectum, in the recto-sigmoid colon, in the sigmoid colon, in the descending colon and in the cecum. - Congested mucosa in the entire examined colon. Biopsied. Recommendation: - Discharge patient to home. - Resume previous diet. - Continue present medications. - Await pathology results. - Repeat colonoscopy in 5 years for surveillance based on pathology results. Procedure Code(s): --- Professional --- 47664, Colonoscopy, flexible; with biopsy, single or multiple CPT copyright 2021 [employer]. All rights reserved. The codes documented in this report are preliminary and upon developer automatic review may be revised to meet current compliance requirements. Stanley Samaniego DO 07/21/2025 9:51:29 AM This report has been signed electronically. Number of Addenda: 0 Note Initiated On: 07/21/2025 9:24 AM
--- NOTE | 2025-07-21 09:51 | OP.PROVAT_ITS ---
07/21/2025 Lydia Flores [facility], Infection Prevention Specialist-c Re : Colonoscopy procedure for Kailyn Gómezr Mark This procedure was performed on Monday, July 21, 2025. My impressions and recommendations are as follows: Impressions : - Preparation of the colon was fair. - Stool in the rectum, in the recto-sigmoid colon, in the sigmoid colon, in the descending colon and in the cecum. - Congested mucosa in the entire examined colon. Biopsied. Recommendations : - Discharge patient to home. - Resume previous diet. - Continue present medications. - Await pathology results. - Repeat colonoscopy in 5 years for surveillance based on pathology results. My findings are described in the full procedure note, which is enclosed. If I can be of further assistance, please feel free to contact me at . Sincerely, Stanley Samaniego, 07/21/2025 9:51:29 AM This report has been signed electronically.
--- NOTE | 2025-07-21 13:11 | PCM.POSTANE2 ---
Anesthesia Postop Eval I Sum Postop Eval Completion status Anesthesia document: Postop Eval 1 completed: Yes Anesthesia Postop Eval I Summary Anesthesia Postop Eval I Summary: Anesthesia Postop Eval I: Assessment Summary Airway patent Yes 07/21/25 09:46 [email or web address] Spontaneous unlabored Yes 07/21/25 09:46 [email or web address] respirations Mental status Asleep 07/21/25 09:46 [email or web address] nausea No 07/21/25 09:46 [email or web address] Vomiting No 07/21/25 09:46 [email or web address] Anesthesia Postop Eval I: Fluid Summary Crystalloid volume administer 700 07/21/25 09:46 [email or web address] (ml) Colloids volume administered ( ml) Blood Product volume administered (ml) Total IV fluid infused 700 07/21/25 09:46 [email or web address] Anesthesia Postop Eval I: Summary Notes Anesthesia Complication No 07/21/25 09:46 [email or web address] Anesthesia Complication Comment: Post-operative progress note Anesthesia: Postop Eval II Evaluation Mental status: Awake Pain Level: 0 nausea: No Vomiting: No
== END 2025-07-21 10:19 | disposition home or self-care (01) ==
PROVIDERS: PCP Nurse Practitioner Family; Referring Provider Nurse Practitioner Family; Visit Provider Internal Medicine Gastroenterology
PROC: 0DJD8ZZ Inspection of Lower Intestinal Tract, Via Natural or Artificial Opening Endoscopic (ICD-10-PCS; CPT 45378; principal; 2025-07-21 09:25)
DX: K58.0 Irritable bowel syndrome with diarrhea (principal); J44.9 Chronic obstructive pulmonary disease, unspecified; K22.2 Esophageal obstruction; F41.9 Anxiety disorder, unspecified; F17.210 Nicotine dependence, cigarettes, uncomplicated; F32.A Depression, unspecified; Z79.899 Other long term (current) drug therapy; G25.81 Restless legs syndrome; Z90.710 Acquired absence of both cervix and uterus; Z90.49 Acquired absence of other specified parts of digestive tract; R10.11 Right upper quadrant pain; K21.00 Gastro-esophageal reflux disease with esophagitis, without bleeding; K31.89 Other diseases of stomach and duodenum; K63.89 Other specified diseases of intestine; E78.5 Hyperlipidemia, unspecified
CPT/HCPCS: 45380; 43239; 43248; 88305; 88312; 88342; C1769; J2405

== ENCOUNTER → 2025-07-25 | Outpatient (CLI) | payer MEDICARE, MEDICAID, SELFPAY ==
[2025-07-25 12:50] LABS: Hematocrit 35.8 % (37-47); Hemoglobin 12.3 g/dL (12.0-15.0); Immature Granulocytes Count 0.030 X10^3/uL (0.0-0.0); Mean Corp Hgb Conc 34.4 g/dL (32-36); Mean Corpuscular Volume 107.2 fL (81-99); Mean Platelet Vol. 9.6 fl (6.2-12.0); NRBC Flagged by Analyzer 0 % (0-5); Platelet Count 321 K/mm3 (150-450); RBC Distribution Width CV 12.5 % (11.6-14.6); RBC Distribution Width SD 49.1 fl (35.1-43.9); Red Blood Count 3.34 M/mm3 (4.2-5.4); White Blood Count 7.6 K/mm3 (4.4-11.0)
[2025-07-25 13:41] LABS: AST(SGOT) 22 U/L (<=31); Alanine Aminotransfer ALT/SGPT 12 U/L (<=34); Albumin, Serum 4.2 g/dL (3.4-4.8); Alkaline Phosphatase 80 U/L (35-104); Anion Gap 15 (5-15); BUN 9 mg/dL (4-19); BUN/Creat Ratio 13.9 RATIO (10-20); Calcium,Total 9.6 mg/dL (7.6-11.0); Carbon Dioxide 18.7 mmol/L (21.0-32.0); Chloride 103 mmol/L (98-108); Cholesterol 138 mg/dL (<=200); Globulin 2.3 g/dL (2.2-4.2); Glucose 98 mg/dL (70-99); Low Density Lipoprotein Calc. 9 mg/dL; Potassium 4.0 mmol/L (3.3-5.1); Triglycerides 309 mg/dL; Very Low Density Lipoprotein 62 mg/dL (5-40); cholesterol:hdl ratio screen 2.06
== END | disposition home or self-care (01) ==
LOC: VSLAB 09:38
PROVIDERS: PCP Nurse Practitioner Family; Visit Provider Nurse Practitioner Family
DX: J44.9 Chronic obstructive pulmonary disease, unspecified (principal); I10 Essential (primary) hypertension
CPT/HCPCS: 36415; 80053; 80061; 84443; 85025

== ENCOUNTER → 2025-08-14 | Outpatient (CLI) | payer MEDICARE, MEDICAID, SELFPAY ==
--- NOTE | 2025-08-14 10:23 | MRI_ITS ---
PROCEDURE: SPINE CERVICAL (ROUTINE) 08/14/2025 REASON FOR EXAM: CERVICAL TECHNIQUE: Procedure Code: MRISPC Modality: MR Procedure: SPINE CERVICAL (ROUTINE) T1, T2, stir, multiplanar and multisequence images were obtained without IV contrast administration. COMPARISON: None FINDINGS: There is loss of the lordosis. Vertebral body height is maintained. There is grade 1 spondylolisthesis at C3-4, 0.2 cm. There is grade 1 retrolisthesis at C5-6, 0.3 cm. Vertebral body marrow signal is normal. The intervertebral disc signal shows desiccation. The facets are aligned. C2-C3: There is no significant disc protrusion. There is no lateral recess or foraminal stenosis. There is no central canal stenosis. C3-C4: There is mild central and left paracentral disc protrusion. There is mild left lateral recess effacement. There is no significant foraminal stenosis. There is no central canal stenosis. C4-C5: There is no significant disc protrusion. There is no lateral recess or foraminal stenosis. There is no central canal stenosis. C5-C6: There is moderate central and mild right and left paracentral disc protrusion. There is mild bilateral lateral recess effacement. There is moderate bilateral foraminal narrowing secondary to disc protrusion, uncovertebral joint and facet hypertrophy. There is mild central canal stenosis. C6-C7: There is mild central and moderate right and left paracentral disc and osteophyte protrusion. There is mild bilateral lateral recess stenosis. There is mild bilateral foraminal narrowing secondary to disc protrusion and facet hypertrophy. There is mild central canal stenosis, partly secondary to ligamentous hypertrophy. C7-T1: There is no significant disc protrusion. There is no lateral recess or foraminal stenosis. There is no central canal stenosis. The visualized cord shows normal signal characteristics. Adjacent soft tissues are grossly unremarkable. MRI/Spine Cervical (Routine) IMPRESSION: There is grade 1 spondylolisthesis at C3-4, 0.2 cm. There is grade 1 retrolisth esis at C5-6, 0.3 cm. There is mild central canal stenosis at C5-6 and C6-7, with lateral recess and foraminal narrowing. Reading Location: [id number]
== END | disposition home or self-care (01) ==
LOC: MRI 10:18
PROVIDERS: PCP Nurse Practitioner Family; Referring Provider Orthopaedic Surgery Orthopaedic Surgery of the Spine; Visit Provider Orthopaedic Surgery Orthopaedic Surgery of the Spine
DX: G95.9 Disease of spinal cord, unspecified (principal)
CPT/HCPCS: 72141

== ENCOUNTER → 2025-10-13 | Outpatient (CLI) | payer MEDICARE, MEDICAID, SELFPAY ==
[2025-10-13 13:34] LABS: Barbiturate Urine NEGATIVE (< 200 ng/mL); Benzodiazepine Urine PRESUMPTIVE POSITIVE (< 200 ng/mL); PCP Urine NEGATIVE (< 25 ng/mL); THC Urine PRESUMPTIVE POSITIVE (< 50 ng/mL)
== END | disposition home or self-care (01) ==
LOC: LAB 11:54
PROVIDERS: PCP Nurse Practitioner Family; Referring Provider Anesthesiology Pain Medicine; Visit Provider Anesthesiology Pain Medicine
DX: F11.20 Opioid dependence, uncomplicated (principal)
CPT/HCPCS: 80307